=== PATIENT | female | born 1940 | race Caucasian/White ===

== ENCOUNTER 2018-02-27 11:55 | Inpatient (IN) | payer MEDICARE, OTHER ==
--- NOTE | 2018-02-27 13:33 | RAD ---
LEFT HIP 2 VIEWS: Date: 02/27/18 HISTORY: Fall. FINDINGS: There is an intertrochanteric fracture of the left hip with coxa vara deformity. The bones are demine ralized. IMPRESSION: Intertrochanteric fracture of the left hip. POS: [facility]
[2018-02-27 13:39] LABS: #Basophils 0.1 thou/uL (0.0-0.2); #Eosinphils 0.1 thou/uL (0.0-0.7); #Lymphocytes 1.2 thou/uL (1.20-3.40); #Monocytes 0.5 thou/uL (0.11-0.59); #Neutrophils 6.6 thou/uL (1.40-6.50); %Basophils 0.7 % (0.0-1.0); %Eosinophils 0.6 % (0.0-10.0); %Lymphocytes 14.5 % (21.0-51.0); %Monocytes 5.7 % (0.0-10.0); %Neutrophils 78.5 % (42.0-75.0); Hemoglobin 12.5 g/dL (12.0-16.0); Mean Corpuscular Hemoglobin 29.1 pg (27.0-31.0); Mean Corpuscular Volume 85.5 fL (78.0-98.0); Mean Platelet Volume 7.1 fL (7.4-10.4); Platelet Count 245 thou/uL (130-400); RBC Distribution Width 13.5 % (11.5-14.5); White Blood Cell (WBC) Count 8.4 thou/uL (4.8-10.8)
[2018-02-27 13:49] LABS: INR-International Normal Ratio 0.9; PTT 28.9 SEC (22.9-36.1); Prothrombin Time 12.5 SEC (12.0-14.7)
[2018-02-27 13:59] LABS: ALT (SGPT) 23 U/L (8-55); AST (SGOT) 33 U/L (5-34); Alkaline Phosphatase 85 U/L (40-150); Anion Gap 12 mmol/L (10-20); BUN (Urea Nitrogen) 17 mg/dL (9.8-20.1); Bilirubin, Total 0.5 mg/dL (0.2-1.2); CK (CPK) 90 U/L (29-168); Calc. Creatinine Clearance 0 mL/min (70-130); Calcium 9.3 mg/dL (7.8-10.44); Carbon Dioxide 27 mmol/L (23-31); Chloride 95 mmol/L (98-107); Estimated GFR-MDRD 43; Globulin 3.2 g/dL (2.4-3.5); Glucose 129 mg/dL (83-110); Potassium 3.9 mmol/L (3.5-5.1); Protein, Total 7.2 g/dL (6.0-8.3); Sodium 130 mmol/L (136-145)
[2018-02-27 14:02] LABS: CKMB 2.4 ng/mL (0-6.6); Troponin I Less than 0.010 ng/mL (< 0.028)
[2018-02-27] MEDS ORDERED: Dextrose 50% Abboject 50 ML SYRINGE SLOW IVP PRN (14:19)
[2018-02-27] MEDS ORDERED: Ondansetron HCl/PF 4 MG/2 ML Vial IVP PRN (14:19)
[2018-02-27] MEDS ORDERED: Dextrose 5% in Water 1,000 ML IV PRN (14:19)
[2018-02-27] MEDS ORDERED: Ondansetron ODT 4 MG TAB PO PRN (14:19)
[2018-02-27] MEDS ORDERED: hydrALAZINE 20 MG/ML VIAL SLOW IVP PRN (14:19)
[2018-02-27] MEDS ORDERED: Lorazepam 0.5 MG TAB PO PRN (14:22)
[2018-02-27] MEDS ORDERED: Melatonin 3 MG TAB PO PRN (14:22)
[2018-02-27] MEDS ORDERED: traMADol HCl 50 MG TAB PO PRN (14:24)
[2018-02-27] MEDS ORDERED: traMADol HCl 50 MG TAB PO SCH (14:30)
--- NOTE | 2018-02-27 14:46 | RAD ---
AP VIEW CHEST: Date: 02/27/18 INDICATION: Preop evaluation. COMPARISON: Prior exam dated 05/13/14. IMPRESSION: Chronic lung changes are stable. Mild cardiomegaly is similar appearing. No consolidation, pleural ef fusion, or pneumothorax is evident. No acute osseous abnormality is noted. POS: [facility]
[2018-02-27] MEDS ORDERED: Ondansetron HCl/PF 4 MG/2 ML Vial ONE (15:04)
[2018-02-27] MEDS ORDERED: CEFAZOLIN/Water 2 GM/20 ML SYRINGE SLOW IVP SCH (15:45)
[2018-02-27] MEDS ORDERED: Fentanyl 100 MCG/2 ML VIAL ONE ×2 (16:03→16:40)
[2018-02-27] MEDS ORDERED: Midazolam HCl 2 mg/2 ml Vial ONE (16:40)
[2018-02-27] MEDS ORDERED: CEFAZOLIN/Water 2 GM/20 ML SYRINGE ONE (16:52)
[2018-02-27] MEDS ORDERED: Bupivacaine 0.75% W/DEXTROSE 8.25% 2 ML AMP ONE (16:59)
[2018-02-27] MEDS ORDERED: Lidocaine 2% PF Inj 2 ML VIAL ONE (16:59)
[2018-02-27 17:06] LABS: CKMB 2.3 ng/mL (0-6.6); Troponin I Less than 0.010 ng/mL (< 0.028)
--- NOTE | 2018-02-27 17:11 | CON ---
DATE OF CONSULTATION: 02/27/2018 CHIEF COMPLAINT: Left hip pain. HISTORY OF PRESENT ILLNESS: Ms. Christine is a 77-year-old female who was at the grocery store today. Sh e turned when she lost her balance. Her cart fell over and she fell as well. She landed on her left side on the hard ground. She had immediate pain. She had deformity. She was unable to weightbear. She was taken to the emergency department by EMS. X-rays were obtained which showed a proximal fem ur fracture at the intertrochanteric region. Orthopedics was consulted for this. She has received p ain control. She is currently resting comfortably. No other injuries. She did not lose consciousne ss. She remembers the events well. PAST MEDICAL HISTORY: Chronic obstructive pulmonary disease and history of gastroesophageal reflux w ith history of ulcer as well. PAST SURGICAL HISTORY: Ruptured gastric ulcer surgery. ALLERGIES: BARBITURATES and MORPHINE. SOCIAL HISTORY: The patient smokes cigarettes. She denies alcohol or drug use. She lives independe ntly alone. REVIEW OF SYSTEMS: Positive for left hip pain, otherwise negative 10-point review of systems. IMAGES: X-rays of the pelvis and left hip demonstrate a displaced left intertrochanteric femur fract ure with varus angulation. PHYSICAL EXAMINATION: VITAL SIGNS: Stable. The patient is normotensive. She is 98% on room air. GENERAL: She is alert, lying supine, in no apparent distress. HEENT: Normocephalic, atraumatic. RESPIRATORY: Breathing comfortably. ABDOMEN: Soft and nontender, nondistended. CARDIOVASCULAR: Pulses palpable and regular. MUSCULOSKELETAL: The patient's left leg is externally rotated and shortened. She is hesitant to mov e the leg. She has pain with movement. She has intact sensation on the dorsal and plantar foot. Pa lpable pulse. Two second capillary refill. IMPRESSION: Left intertrochanteric femur fracture. PLAN: At this point, the patient will need operative treatment. I have her scheduled for closed red uction with traction and fixation using a dynamic hip screw. She will undergo this today. We will o btain consent. I will review the plan with her as well as with her family. Risks do include infecti on, pain, scarring, nerve or vascular injury, DVT, PE, hardware failure, and others. She will have p reoperative antibiotics as well as DVT prophylaxis.
--- NOTE | 2018-02-27 17:37 | HP ---
DATE OF ADMISSION: 02/27/2018 ATTENDING PHYSICIAN: Dr. Bruno. TRAUMA ACTIVATION: Not applicable. HISTORY OF PRESENT ILLNESS: Alessia Christine is a 77-year-old female who presented to [facility] statu s post mechanical fall. Per patient, she was in the grocery store when she tripped and fell, strikin g her left side. She had immediate onset of left lower extremity pain and deformity and was unable t o ambulate. She was evaluated in the emergency room and found to have an isolated left hip fracture. The patient denies any head trauma or loss of consciousness. Upon my evaluation, she is having lef t-sided hip discomfort rated as a 9/10 with movement, but 1/10 when at rest. The pain is relieved wi th pain medications. ALLERGIES: Barbiturates. HOME MEDICATIONS: Singulair inhaler, Ventolin inhaler, sodium chloride 1 gram b.i.d., atenolol 50 mg p.o. daily, and Ativan 0.5 mg q.8 hours p.r.n. anxiety. PAST MEDICAL HISTORY: Significant for hypertension and abdominal hernia. PAST SURGICAL HISTORY: Significant for a perforated ulcer repair and tonsillectomy. SOCIAL HISTORY: Patient lives alone, ambulates independently. Denies any alcohol use, but is a 1 pa ck per day smoker x60 years. Denies illicit drug use. FAMILY HISTORY: Patient denies any family history of chronic medical illnesses. REVIEW OF SYSTEMS: A 10-poin6t review of systems was obtained and essentially negative except as ind icated in the HPI. PHYSICAL EXAMINATION: VITAL SIGNS: Blood pressure 207/94, pulse 53, respiration rate 18, O2 saturation 98% on room air. GENERAL: Frail appearing elderly female in no acute distress, resting in bed. HEAD: Normocephalic, atraumatic. EYES: Pupils are PERRLA. Extraocular movements are intact. NECK: Supple. Trachea is midline. CHEST: Atraumatic. No tenderness to palpation. Normal work of breathing. Symmetric rise. CARDIOVASCULAR: Regular rate and rhythm, no obvious murmurs, rubs, or gallops. GASTROINTESTINAL: Abdomen is soft, nontender, nondistended. Bowel sounds are positive. EXTREMITIES: Bilateral upper extremities with scattered areas of ecchymosis. Right lower extremity within normal limits. Left lower extremity demonstrated shortening and external rotation. Pulses ar e 2+ bilaterally. NEUROLOGIC: GCS is 15. No focal deficit is noted. LABORATORY FINDINGS: WBC 8.4, hemoglobin 12.5, hematocrit 36.7, platelet count 245. INR 0.9. Sodiu m 130, potassium 3.9, chloride 95, carbon dioxide 27, BUN 17, creatinine 1.22, glucose 129. RADIOGRAPHIC FINDINGS: X-ray of the hip demonstrated a left intertrochanteric hip fracture. Chest x -ray demonstrated no acute cardiopulmonary findings with flattened diaphragms. ASSESSMENT: 1. Status post mechanical fall. 2. Left hip fracture. 3. Acute traumatic pain. 4. Hyponatremia, likely chronic. 5. Acute kidney injury versus chronic kidney disease. 6. Hypertension. PLAN: 1. Admit to Trauma Services. 2. Orthopedic Surgery plans to see and evaluate the patient, but hopes for operative intervention la ter today. IV hydralazine now for hypertension. Follow up postoperatively. Perioperative pain ann gement with p.o. and IV analgesics. We will reconcile home medications. Postoperative PT and OT. P ostoperative rehabilitation screen. 3. DVT and gastritis prophylaxis as appropriate. Plan for admission were discussed with the patient , who vocalized her understanding. All questions were answered at the time of this dictation. The p atient has been seen and evaluated by Dr. Bruno.
--- NOTE | 2018-02-27 18:23 | OP ---
DATE OF PROCEDURE: 02/27/2018 OPERATION: Open reduction and internal fixation of left intertrochanteric femur fracture. PREOPERATIVE DIAGNOSIS: Left intertrochanteric femur fracture. POSTOPERATIVE DIAGNOSIS: Left intertrochanteric femur fracture. COMPLICATIONS: None. ESTIMATED BLOOD LOSS: 200 mL SURGEON: Eladio Shahid M.D. ANESTHESIA: Spinal. IMPLANTS: Synthes DHS 3-hole plate. INDICATIONS: Ms. Christine is a 77-year-old female who fell. She fractured her left intertrochanteric fe mur. She was indicated for reduction and fixation. Goal of surgery is early mobilization and preven tion of complications of prolonged bed rest. Risks do include respiratory complication, cardiac comp lication, nerve or vascular injury, DVT, PE, wound infection or other complication. DESCRIPTION OF PROCEDURE: Ms. Christine was identified in the preoperative holding area. Her correct ext remity was marked. She was carried to the operating room. She was positioned supine. General anest hesia was induced. A multidisciplinary timeout was performed. The left lower extremity was prepped and draped in the sterile fashion. At this point, we used intraoperative x-ray to reduce the fractur e on the traction table. We pulled traction and rotated the femur back into an anatomic position. A t this point, we made a 4 cm incision along the lateral thigh. We dissected down to the fascia, whic h was split. We then elevated the vastus lateralis. At this point, we placed our 135-degree angled guide. We placed this in the centered position of the femoral head. The guide was removed. We then overdrilled the guidewire and placed our centered screw. A 3-hole side plate was placed and transfi xed with 3 screws in the femur. We took final images confirming all hardware and reduction. We stor ed these. We then thoroughly irrigated with copious lavage. At this point, closure was completed wi th 0 Vicryl suture, 2-0 Vicryl suture and keena for the skin. A sterile dressing was applied. The patient was taken to the recovery room in good condition without complication.
--- NOTE | 2018-02-27 18:32 | RAD ---
TWO FLUOROSCOPIC SPOT IMAGES OF THE LEFT HIP: 02/27/18 INDICATION: ORIF of the left hip. COMPARISON: Prior exam dated 02/27/18. FINDINGS: Significant from the comparison is there has been interval placement of a sliding hip screw and sidep late involving the left intertrochanteric hip fracture. Fracture alignment is near anatomic. Instrume ntation projects in the expected position. Total fluoroscopic time is 25 seconds. Total exposure is 2 .09 mGy. IMPRESSION: Interval ORIF of left hip. POS: [facility]
[2018-02-27 20:04] LABS: CKMB 2.8 ng/mL (0-6.6); Troponin I Less than 0.010 ng/mL (< 0.028)
[2018-02-27 20:57] VITALS: BMI 17.6
[2018-02-27] MEDS: Acetaminophen 1,000 MG in Premix Bag 1 BAG IVPB SCH (22:38)
[2018-02-27] MEDS: Montelukast Sodium 10 mg Tablet PO SCH (22:39)
[2018-02-27] MEDS: Senokot S 8.6-50 MG TAB PO SCH (22:39)
[2018-02-27] MEDS: traMADol HCl 50 MG TAB PO SCH (22:39)
[2018-02-27] MEDS: Sodium Chloride 0.9% 1,000 ML IV SCH (22:39)
[2018-02-27] MEDS: Sodium Chloride 1 GM TAB PO SCH (22:40)
[2018-02-28] MEDS: traMADol HCl 50 MG TAB PO SCH ×4 (01:33→18:13)
[2018-02-28] MEDS: Acetaminophen 1,000 MG in Premix Bag 1 BAG IVPB SCH ×2 (01:33→05:12)
[2018-02-28] MEDS: CEFAZOLIN/Water 2 GM/20 ML SYRINGE SLOW IVP SCH ×2 (01:34→09:05)
[2018-02-28] MEDS: Sodium Chloride 0.9% 1,000 ML IV SCH (03:56)
[2018-02-28 04:03] LABS: Bilirubin Negative (Negative); Blood, Urine Negative (Negative); Clarity CLEAR (Clear); Glucose, Urine (Dipstick) Negative (Negative); Leukocyte Small (Negative); Nitrite Negative (Negative); Protein, Urine (Dipstick) Negative (Neg-Trace); Specific Gravity, Urine 1.027 (1.002-1.036); Urobilinogen 0.2 mg/dL (0.2-1.0); pH, Urine 5.5 (5.0-9.0)
[2018-02-28 04:05] LABS: Bacteria/HPF None Seen HPF (None Seen); Hyaline Casts/LPF 0-3 HYALINE CAST LPF (0-3 Hyaline); Squamous Epithelial 0-3 HPF (0-3); WBC/HPF 21-50 HPF (0-3)
[2018-02-28 04:31] LABS: Renal Epithelial 0-3 HPF (0-3); Transitional Epithelial NONE SEEN HPF (0-3)
[2018-02-28 05:40] LABS: #Lymphocytes 0.9 thou/uL (1.20-3.40); #Monocytes 0.6 thou/uL (0.11-0.59); #Neutrophils 5.1 thou/uL (1.40-6.50); %Basophils 0.5 % (0.0-1.0); %Eosinophils 0.3 % (0.0-10.0); %Lymphocytes 13.9 % (21.0-51.0); %Monocytes 9.4 % (0.0-10.0); %Neutrophils 75.9 % (42.0-75.0); Hemoglobin 9.1 g/dL (12.0-16.0); Mean Corpuscular HGB CONC 33.9 g/dL (32.0-36.0); Mean Corpuscular Volume 85.4 fL (78.0-98.0); Mean Platelet Volume 7.5 fL (7.4-10.4); Platelet Count 194 thou/uL (130-400); RBC Distribution Width 13.3 % (11.5-14.5); Red Blood Cell (RBC) Count 3.15 mill/uL (4.20-5.40); White Blood Cell (WBC) Count 6.8 thou/uL (4.8-10.8)
[2018-02-28 05:47] LABS: Anion Gap 9 mmol/L (10-20); BUN (Urea Nitrogen) 17 mg/dL (9.8-20.1); Calc. Creatinine Clearance 26 mL/min (70-130); Calcium 8.5 mg/dL (7.8-10.44); Carbon Dioxide 26 mmol/L (23-31); Chloride 99 mmol/L (98-107); Estimated GFR-MDRD 45; Glucose 97 mg/dL (83-110); Potassium 4.4 mmol/L (3.5-5.1); Sodium 130 mmol/L (136-145)
[2018-02-28] MEDS: Famotidine/PF 20 mg/2ml Vial SLOW IVP SCH (09:08)
[2018-02-28] MEDS: Enoxaparin Sodium 40 MG/0.4 ML SYRINGE SC SCH (09:08)
[2018-02-28] MEDS: Polyethylene Glycol 3350 17 GM Packet PO SCH (09:08)
[2018-02-28] MEDS: Senokot S 8.6-50 MG TAB PO SCH ×2 (09:08→20:37)
[2018-02-28] MEDS: Sulfameth/Trimethoprim DS 800-160mg TAB PO SCH ×2 (09:08→20:36)
[2018-02-28] MEDS: Atenolol 50 MG TAB PO SCH (09:16)
[2018-02-28] MEDS: Sodium Chloride 1 GM TAB PO SCH ×2 (09:22→21:17)
[2018-02-28] MEDS ORDERED: Nicotine 21 MG PATCH TD SCH (11:00)
--- NOTE | 2018-02-28 11:34 | PRG ---
DATE OF SERVICE: 02/28/2018 SUBJECTIVE: This is a 77-year-old female who is status post mechanical fall resulting in left hip fr acture. She is postop day 1 status post open reduction internal fixation of left intertrochanteric h ip fracture. Upon my evaluation this morning, the patient has a chief complaint of left lower extrem ity cramping and irritation from her Kincaid catheter. She is also having significant craving for van vipin. She has not yet been able to work with physical therapy. The family at bedside is requesting eventual disposition to correction or rehab facility close to their [facility]. OBJECTIVE: VITAL SIGNS: Temperature 97.2, pulse 56, respiration 20, O2 sat 100% on room air, blood pressure 183 /83. GENERAL: Well-developed elderly female, in no acute distress, resting in bed. PULMONARY: Normal work of breathing. Symmetric rise. CARDIOVASCULAR: Regular rate and rhythm. GASTROINTESTINAL: Abdomen is soft, nontender, nondistended. MUSCULOSKELETAL: Moves all extremities x4. Left hip surgical dressing is clean, dry and intact. NEUROLOGIC: No focal deficit is noted. LABORATORY FINDINGS: Sodium 130, potassium 4.4, chloride 99, carbon dioxide 26, BUN 17, creatinine 1 .17, phosphorus 4.0, magnesium 2.0, glucose 97. ASSESSMENT: 1. Status post mechanical fall. 2. Left hip fracture, postop day 1 status post repair. 3. Acute traumatic pain. 4. Hyponatremia, chronic, stable. 5. Chronic kidney disease, stable. 6. Hypertension. PLAN: The patient to resume home beta deniz. She is to work with PT and OT today. We will add Fl exeril 5 mg t.i.d. p.r.n. for muscle spasm. Nicotine patch. The patient additionally had a chief co mplaint of a dry mouth. We will add Biotin. Discontinue Kincaid. The patient may be saline locked. Transition to p.o. pain medications. Rehab screen. Supportive care as ordered. Incentive spirometr y and pulmonary toileting. Plan of care were discussed with the patient and family at bedside. All questions were answered at the time of this dictation. [facility]
[2018-02-28] MEDS ORDERED: BIOTENE MOUTH SPRAY 44.3 ML PO SCH (11:45)
[2018-02-28] MEDS: Acetaminophen 500 MG TAB PO SCH ×2 (12:01→18:13)
[2018-02-28] MEDS: Cyclobenzaprine 10 MG TAB PO PRN (12:14)
--- NOTE | 2018-02-28 13:59 | ADD-HP ---
ADDENDUM This is an addendum to the H&P dictated by Millicent Koroma trauma PA. For full details, please see he r dictated report, the details of which I have confirmed. HISTORY: In short, Mr. Christine is a 77-year-old woman who fell at the grocery store, landing on her lef t hip and had immediate pain and deformity of that leg. She was found to have an isolated left hip f racture and that is her only complaint in the emergency room. ALLERGIES: She reports an adverse drug reaction to barbiturates and takes Singulair inhaler, Ventoli n inhaler, atenolol, and Ativan as well as a salt tablet daily at home. PAST MEDICAL HISTORY: Chronic obstructive pulmonary disease, hypertension. PAST SURGICAL HISTORY: Repair of a perforated peptic ulcer with resulting chronic hernia. She has a lso had a tonsillectomy in the distant past. SOCIAL HISTORY: She does still smoke, does not use any drugs or alcohol and lives independently. FAMILY HISTORY: Noncontributory. REVIEW OF SYSTEMS: Ten-system review of systems is negative except per HPI. PHYSICAL EXAMINATION: Unremarkable except for externally rotated and foreshortened left leg with cristy n in the left hip area. She has normal peripheral pulses movements and sensation. She also has a la rge broad-based ventral hernia with likely loss of domain and multiple bowel loops outside of the abd ominal wall under a layer of skin and soft tissue. These are easily reducible and the patient states that it has been present for years and does not bother her. LABORATORY DATA: Labs are unremarkable and creatinine is mildly elevated at 1.22. X-ray shows inter trochanteric hip fracture. Chest x-ray shows some COPD findings with flattening of the diaphragms. She is going to the operating room today with Dr. Shahid for repair of her hip fracture. We will manage her perioperatively with pain management and early mobilization and continue her home medicati ons. She will be placed on deep venous thrombosis and ulcer prophylaxis.
[2018-02-28] MEDS: traMADol HCl 50 MG TAB PO PRN (16:08)
[2018-02-28] MEDS: Montelukast Sodium 10 mg Tablet PO SCH (20:36)
[2018-02-28] MEDS: BIOTENE MOUTH SPRAY 44.3 ML PO SCH (20:37)
[2018-03-01] MEDS: traMADol HCl 50 MG TAB PO SCH ×4 (00:27→17:30)
[2018-03-01] MEDS: Acetaminophen 500 MG TAB PO SCH ×4 (00:28→17:30)
[2018-03-01 06:03] LABS: Anion Gap 10 mmol/L (10-20); BUN (Urea Nitrogen) 16 mg/dL (9.8-20.1); Calc. Creatinine Clearance 23 mL/min (70-130); Calcium 8.9 mg/dL (7.8-10.44); Carbon Dioxide 26 mmol/L (23-31); Chloride 99 mmol/L (98-107); Estimated GFR-MDRD 40; Glucose 105 mg/dL (83-110); Phosphorus 3.4 mg/dL (2.3-4.7); Potassium 5.2 mmol/L (3.5-5.1); Sodium 130 mmol/L (136-145)
[2018-03-01] MEDS: BIOTENE MOUTH SPRAY 44.3 ML PO SCH ×2 (09:41→20:42)
[2018-03-01] MEDS: Famotidine/PF 20 mg/2ml Vial SLOW IVP SCH (09:42)
[2018-03-01] MEDS: Sodium Chloride 1 GM TAB PO SCH ×2 (09:42→20:38)
[2018-03-01] MEDS: Senokot S 8.6-50 MG TAB PO SCH ×2 (09:42→20:39)
[2018-03-01] MEDS: Sulfameth/Trimethoprim DS 800-160mg TAB PO SCH ×2 (09:42→20:38)
[2018-03-01] MEDS: Polyethylene Glycol 3350 17 GM Packet PO SCH (09:42)
[2018-03-01] MEDS: Enoxaparin Sodium 40 MG/0.4 ML SYRINGE SC SCH (09:43)
[2018-03-01] MEDS: Nicotine 21 MG PATCH TD SCH (09:43)
[2018-03-01] MEDS: Atenolol 50 MG TAB PO SCH (09:45)
--- NOTE | 2018-03-01 11:58 | CT ---
CT OF BRAIN PERFORMED WITHOUT CONTRAST ENHANCEMENT: HISTORY: Head injury. FINDINGS: There is generalized ventricular and sulcal prominence with decreased attenuation of the periventricu lar white matter consistent with some chronic white matter change. No signs of intracerebral hemorrh age or extraaxial fluid collection. Mastoid air cells and visualized sinuses are clear. IMPRESSION: No acute intracranial abnormalities. POS: [facility]
--- NOTE | 2018-03-01 15:16 | PRG-2 ---
DATE OF SERVICE: 02/28/2018 SUBJECTIVE: This is a 77-year-old female who is status post mechanical fall resulting in a left hip fracture. She is postop day #02, status post open reduction internal fixation of left intertrochante susan hip fracture. The patient states that her left leg is still cramping. Today, she was able to wo rk with physical therapy. Family still wants the patient at nursing or rehab facility close at home. Options may include swing bed. OBJECTIVE: VITAL SIGNS: Temperature 98.2, pulse 65, respirations 16, pulse ox 97% on 2 liters, blood pressure 1 26/76. GENERAL: Patient is resting in bed, in no acute distress. PULMONARY: Lungs are clear to auscultation bilaterally, nonlabored breathing. CARDIOVASCULAR: Regular rate and rhythm with no murmurs. GASTROINTESTINAL: Abdomen is soft, nontender with bowel sounds present. MUSCULOSKELETAL: The patient can move all 4 extremities. Surgical dressing is clean, dry, and intac t. Pulses are present in all 4 extremities. NEUROLOGIC: No focal deficit is noted. LABORATORY DATA: Sodium 130, potassium 5.2, chloride 99, bicarbonate 26, BUN 16, creatinine 1.29, gl ucose 105. ASSESSMENT: 1. Status post mechanical fall. 2. Left hip fracture, postop day #2 status post repair. 3. Acute traumatic pain. 4. Hyponatremia, chronic, stable. 5. Chronic kidney disease, stable. 6. Hypertension. PLAN: The patient has worked well with PT, OT today. The patient is on melatonin for sleep as well as nicotine patch. Patient's Kincaid was discontinued today. The patient is undergoing rehabilitation screen. We are continuing supportive care as well as incentive spirometry. Dr. Osuna saw this oswald ent and we discussed their treatment and plan.
[2018-03-01] MEDS: Cyclobenzaprine 10 MG TAB PO PRN (17:32)
[2018-03-01] MEDS: Montelukast Sodium 10 mg Tablet PO SCH (20:39)
[2018-03-01] MEDS: Midodrine HCl 5 MG TAB PO SCH (20:41)
[2018-03-01] MEDS ORDERED: Melatonin 3 MG TAB PO SCH (21:00)
[2018-03-02] MEDS: traMADol HCl 50 MG TAB PO SCH ×4 (00:04→17:30)
[2018-03-02] MEDS: Acetaminophen 500 MG TAB PO SCH ×4 (00:04→17:30)
[2018-03-02] MEDS ORDERED: BIOTENE MOUTH SPRAY 44.3 ML PO PRN (07:46)
[2018-03-02] MEDS: Atenolol 50 MG TAB PO SCH (08:30)
[2018-03-02] MEDS: Polyethylene Glycol 3350 17 GM Packet PO SCH (08:31)
[2018-03-02] MEDS: Sodium Chloride 1 GM TAB PO SCH (08:31)
[2018-03-02] MEDS: Senokot S 8.6-50 MG TAB PO SCH (08:31)
[2018-03-02] MEDS: Enoxaparin Sodium 40 MG/0.4 ML SYRINGE SC SCH (08:31)
[2018-03-02] MEDS: Sulfameth/Trimethoprim DS 800-160mg TAB PO SCH (08:31)
[2018-03-02] MEDS: Nicotine 21 MG PATCH TD SCH (08:32)
[2018-03-02] MEDS ORDERED: Famotidine 20 MG TAB PO SCH (09:00)
[2018-03-02] MEDS: traMADol HCl 50 MG TAB PO PRN (09:09)
[2018-03-02] MEDS: Midodrine HCl 5 MG TAB PO SCH (09:41)
[2018-03-02] MEDS ORDERED: Cyclobenzaprine 10 MG TAB PO SCH (15:00)
--- NOTE | 2018-03-02 15:31 | PRG-2 ---
DATE OF SERVICE: 03/02/2018 PHYSICIANS: Dr. Camilo Osuna and Abilio Key DO SUBJECTIVE: This is a 77-year-old female hospital day #3, postop day #3, status post left hip ORIF. Today, she has had some confusion per nursing and per family. The patient also complains of muscle spasms in her left leg. The patient denies any dizziness, chest pain, or shortness of breath. The p atient states that she is working with physical therapy and physical therapy states that she has been making progress. OBJECTIVE: VITAL SIGNS: Temperature 97.3, pulse 77, respirations 16, O2 sat 98% on room air, blood pressure 151 /76. GENERAL: The patient is found lying in bed, in no acute distress. HEENT: Normocephalic, atraumatic. CARDIOVASCULAR: Regular rate and rhythm. No murmurs. RESPIRATORY: Lungs clear to auscultation bilaterally. EXTREMITIES: Pulses present in all 4 extremities. The patient can move all 4 extremities, has koffi l sensation. LABORATORY DATA: No pertinent labs or imaging to review today. ASSESSMENT: 1. Status post mechanical fall. 2. Left hip fracture, postop day #3 status post repair. 3. Acute traumatic pain. 4. Hyponatremia, chronic, stable. 5. Chronic kidney disease, stable. 6. Hypertension. PLAN: The patient is working well with PT and OT today. We are scheduling patient's previously p.r. n. Flexeril for muscle spasms. Patient has undergone rehabilitation screen and will be discharged fo r rehabilitation and rehabilitation is ready for her. We will continue supportive care as well as in centive spirometry. Dr. Osuna saw this patient. We discussed the treatment plan.
[2018-03-02 15:41] VITALS: BP 162/74; TEMP 97.5
[2018-03-02] MEDS ORDERED: Sulfameth/Trimethoprim DS 800-160mg TAB PO SCH (16:30)
--- NOTE | 2018-03-03 06:02 | DIS-2 ---
DATE OF ADMISSION: 02/27/2018 DATE OF DISCHARGE: 03/02/2018 ADMITTING ATTENDING TEAM: Trauma, Dr. Osuna; Abilio Key DO DISCHARGE ATTENDING TEAM: Trauma, Dr. Osuna; Abilio Key DO CONSULTATIONS: Dr. Shahid with ortho. PROCEDURES: 1. Two-view left hip showing intertrochanteric fracture of the left hip. 2. One-view chest portable chronic lung changes that are stable, mild cardiomegaly, no consolidation s, pleural effusions, or pneumothorax evident. 3. CT brain without contrast, no acute intracranial abnormalities open reduction and internal fixati on of left hip with 2-view fluoroscopic intraprocedural view showing interval ORIF left hip, alignmen t is near anatomic. ADMITTING DIAGNOSES: Left hip fracture, status post , status post open reduction and internal f ixation. SECONDARY DIAGNOSES: 1. Hyponatremia, acute kidney injury on chronic kidney injury. 2. Hypertension. DISCHARGE MEDICATIONS: Tylenol 1000 mg q.6 hours, cyclobenzaprine 5 mg t.i.d., DuoNebs p.r.n. t.i.d. for wheezing, melatonin 3 mg, nicotine patch, Singulair, ProAmatine, MiraLax, Senokot, 1-gram sodium tab. DISCONTINUED MEDICATIONS: Bactrim double-strength. HISTORY OF PRESENT ILLNESS AND HOSPITAL COURSE: This is a 77-year-old female who presented to the ER status post mechanical fall. Patient was diagnosed with an intertrochanteric femoral neck fracture and was taken for surgery for open reduction and internal fixation. Patient tolerated this procedure well on the night of the 3rd-4th of the month. Patient experienced some sundowning but was easily r eorientable. Patient was placed in a facility and accepted. Patient progressed well towards the goa ls with physical therapy and occupational therapy and will continue towards goals at skilled rehab. DISPOSITION: Stable. DISCHARGE INSTRUCTIONS: 1. Location: jail. 2. Diet: Renal diet. 3. Activity: Weightbearing with assistance. 4. Followup: Dr. Shahid in 10-14 days with her PCP in 1-2 weeks.
[2018-03-03] MEDS ORDERED: Enoxaparin Sodium 30 MG/0.3 ML SYRINGE SC SCH (09:00)
== END 2018-03-02 17:48 | DRG 481 ==
LOC: ERS 11:55 → SDC 16:12 → SURG A 16:50
PROVIDERS: ADMIT Surgery; ATTEND Surgery
PROC: 0QS704Z Reposition Left Upper Femur with Internal Fixation Device, Open Approach (ICD-10-PCS; principal; 2018-02-27)
DX: S72.142A Displaced intertrochanteric fracture of left femur, initial encounter for closed fracture (principal); E87.1 Hypo-osmolality and hyponatremia; N17.9 Acute kidney failure, unspecified; F05 Delirium due to known physiological condition; K21.9 Gastro-esophageal reflux disease without esophagitis; F17.210 Nicotine dependence, cigarettes, uncomplicated; E78.5 Hyperlipidemia, unspecified; Z91.81 History of falling; M81.0 Age-related osteoporosis without current pathological fracture; J43.9 Emphysema, unspecified; M21.952 Unspecified acquired deformity of left thigh; K43.9 Ventral hernia without obstruction or gangrene; M62.838 Other muscle spasm; I12.9 Hypertensive chronic kidney disease with stage 1 through stage 4 chronic kidney disease, or unspecified chronic kidney disease; N18.9 Chronic kidney disease, unspecified
CPT/HCPCS: 36415; 70450; 71045; 76000; 80048; 80053; 81003; 81015; 82550; 82553; 83735; 84100; 84484; 85025; 85610; 85730; 86850; 86900; 86901; 87086; 93005; 94640; 94760; 96361; 96374; 96375; C1713; G8978-GP-CM; G8979-GP-CJ; G8987-GO-CL; G8988-GO-CI; J0131; J0360; J1650; J2250; J2405; J3010; J3490; J7620; Q0162; S0028

== ENCOUNTER 2018-09-11 04:44 | Inpatient (IN) | payer MEDICARE, OTHER ==
[2018-09-11] MEDS ORDERED: Nitroglycerin 2% Ointment 1 INCH/1 GM Packet ONE (05:10)
[2018-09-11] MEDS ORDERED: Fentanyl 100 MCG/2 ML VIAL ONE (05:18)
[2018-09-11 05:20] LABS: #Basophils 0.1 thou/uL (0.0-0.2); #Eosinphils 0.1 thou/uL (0.0-0.7); #Lymphocytes 1.1 thou/uL (1.20-3.40); #Monocytes 0.7 thou/uL (0.11-0.59); #Neutrophils 6.7 thou/uL (1.40-6.50); %Basophils 0.6 % (0.0-1.0); %Eosinophils 0.7 % (0.0-10.0); %Lymphocytes 12.3 % (21.0-51.0); %Monocytes 8.6 % (0.0-10.0); %Neutrophils 77.8 % (42.0-75.0); Hemoglobin 12.1 g/dL (12.0-16.0); Mean Corpuscular HGB CONC 33.4 g/dL (32.0-36.0); Mean Corpuscular Hemoglobin 29.8 pg (27.0-31.0); Mean Corpuscular Volume 89.4 fL (78.0-98.0); Mean Platelet Volume 7.2 fL (7.4-10.4); Platelet Count 209 thou/uL (130-400); RBC Distribution Width 13.1 % (11.5-14.5); Red Blood Cell (RBC) Count 4.05 mill/uL (4.20-5.40); White Blood Cell (WBC) Count 8.6 thou/uL (4.8-10.8)
[2018-09-11 06:08] LABS: ALT (SGPT) 16 U/L (8-55); AST (SGOT) 25 U/L (5-34); Albumin 3.8 g/dL (3.4-4.8); Alkaline Phosphatase 92 U/L (40-150); Anion Gap 11 mmol/L (10-20); BUN (Urea Nitrogen) 21 mg/dL (9.8-20.1); Bilirubin, Total 0.5 mg/dL (0.2-1.2); Calc. Creatinine Clearance 0 mL/min (70-130); Carbon Dioxide 33 mmol/L (23-31); Chloride 94 mmol/L (98-107); Estimated GFR-MDRD 41; Globulin 2.8 g/dL (2.4-3.5); Glucose 121 mg/dL (83-110); Potassium 3.3 mmol/L (3.5-5.1); Protein, Total 6.6 g/dL (6.0-8.3); Sodium 135 mmol/L (136-145)
[2018-09-11 06:08] LABS: Bacteria/HPF None Seen HPF (None Seen); Bilirubin Negative (Negative); Blood, Urine Trace (Negative); Clarity CLOUDY (Clear); Glucose, Urine (Dipstick) Negative (Negative); Hyaline Casts/LPF 0-3 HYALINE CAST LPF (0-3 Hyaline); Leukocyte Negative (Negative); Nitrite Negative (Negative); Pathc Cast-AUWi Flag 0.27 (0-2.49); Protein, Urine (Dipstick) Trace mg/dL (Neg-Trace); Specific Gravity, Urine 1.007 (1.002-1.036); Squamous Epithelial 0-3 HPF (0-3); WBC/HPF 0-3 HPF (0-3)
[2018-09-11 06:10] LABS: Yeast-AUWi Flag 59.4 (0-25.0)
[2018-09-11 06:18] LABS: RBC/HPF 0-3 HPF (0-3); Yeast-All Forms None Seen HPF (None Seen)
[2018-09-11] MEDS ORDERED: hydrALAZINE 20 MG/ML VIAL ONE (06:20)
[2018-09-11] MEDS ORDERED: Potassium Chloride 10 MEQ TAB PO SCH (06:30)
[2018-09-11] MEDS ORDERED: Lorazepam 2 MG/ML VIAL ONE (07:32)
[2018-09-11] MEDS ORDERED: Ondansetron PF 4 MG/2 ML Vial ONE (07:32)
--- NOTE | 2018-09-11 07:54 | CT ---
HEAD CT NONCONTRAST: Date: 09/11/18 COMPARISON: 03/01/18. INDICATION: Fall, head injury with pain. FINDINGS: Mild parenchymal atrophy is present. There is no acute intracranial hemorrhage, mass effect, or midli ne shift. Mild chronic ischemic disease is demonstrated. There is compensatory dilatation of the vent ricular system. No depressed calvarial fracture. There is a small lipoma of the frontal scalp at midl ine with an adjacent punctate radiopaque density. IMPRESSION: No acute intracranial hemorrhage or mass effect. POS: [facility]
--- NOTE | 2018-09-11 07:56 | CT ---
CERVICAL SPINE CT NONCONTRAST: Date: 09/11/18 INDICATION: Fall with neck injury and pain. FINDINGS: There is moderate multilevel degenerative change throughout the cervical spine. No acute fracture trinity ntified. There is trace spondylolisthesis at C2-3 and slight retrolisthesis of C4 on C5 which may be degenerative in etiology. Osseous structures are demineralized. IMPRESSION: No acute osseous abnormality of the cervical spine is identified. POS: [facility]
--- NOTE | 2018-09-11 08:08 | RAD ---
2 VIEW LEFT HIP: Date: 09/11/18 INDICATION: Fall with injury. COMPARISON: 07/29/18. FINDINGS: Redemonstration of surgical hardware at the proximal left femur at the site of prior fixation. There is ill-defined lucency of the base of the left femoral neck. No dislocation of the hardware is seen. IMPRESSION: Postoperative left hip. Ill-defined lucency is present at the femoral neck. There is also slight over lying osseous irregularity of the greater trochanter. Correlate clinically. POS: [facility]
--- NOTE | 2018-09-11 08:19 | CT ---
LIMITED CT ABDOMEN, NONCONTRAST CT OF PELVIS, NONCONTRAST: Date: 09/11/18 INDICATION: Fall with pain. FINDINGS: The visualized low abdomen reveals a prominent sized ventral abdominal wall hernia with numerous loop s of unopacified bowel through the hernia site. This is incompletely visualized on the basis of this exam. There is ectasia and calcification of the imaged abdominal aorta and prominent vascular disease traverses the iliac arteries. A large volume of retained fecal material is present within the left h emicolon. There is a comminuted fracture centered at the base of the left femoral neck with involvement of the greater trochanter, which does traverse the site of indwelling previously placed hardware. The femora l head remains seated within the acetabulum. Right hip joint is maintained. There is generalized osse ous demineralization. Prominent distention of the urinary bladder is seen. There is heterotopic densi ty adjacent to the anterior aspect of the left acetabulum. IMPRESSION: 1. Comminuted proximal left femoral fracture centered about the base of the femoral neck with promin ent involvement of the greater trochanter. This does encompass the indwelling, previously placed left hip hardware. Recommend orthopedic consultation for further care. 2. Partially imaged prominent ventral abdominal wall hernia containing multiple loops of partially v isualized bowel traversing the hernia site. Correlate clinically in this regard. Surgical consultatio n as a follow-up would also prove useful. POS: [facility]
[2018-09-11 08:41] LABS: Troponin I 0.013 ng/mL (< 0.028)
[2018-09-11] MEDS ORDERED: Aspirin 325 MG TAB ONE (08:48)
--- NOTE | 2018-09-11 09:05 | RAD ---
LEFT FOREARM TWO VIEWS: History: Left forearm pain. Comparison: 07-29-18 elbow FINDINGS: There is again noted to be a displaced fracture through the radial head and neck region with what thais ears to be considerable associated bone destruction and possible associated bone lesion. Overall appe arance is not significantly changed from prior study. No new fracture. IMPRESSION: Remote appearing fracture through the humeral head and neck with what appears to be some associated b larry erosive and destructive changes and possible associated bone lesion best representing a pathologi c fracture with little change from the prior study. No new fracture. Findings discussed with Dr. Mcgregor at 08:01 a.m. Code CR POS: [facility]
--- NOTE | 2018-09-11 09:07 | RAD ---
LEFT ELBOW 4 VIEWS: Date: 09/11/18 HISTORY: Pain FINDINGS: Remote appearing fracture involving the left radial head and neck with some associated bone loss, con cerning for pathologic fracture. Appearance does not appear significantly changed from the 07/29/18 s tudy. No new fracture. IMPRESSION: Remote fracture through the proximal radial head and neck with a considerable amount of bone loss, wo rrisome for the possibility of associated pathologic fracture. POS: [facility]
[2018-09-11 09:33] LABS: Bilirubin Negative (Negative); Blood, Urine Negative (Negative); Clarity CLEAR (Clear); Glucose, Urine (Dipstick) Negative (Negative); Leukocyte Negative (Negative); Nitrite Negative (Negative); Protein, Urine (Dipstick) Negative (Neg-Trace); Specific Gravity, Urine 1.007 (1.002-1.036)
--- NOTE | 2018-09-11 09:38 | RAD ---
PORTABLE CHEST: Date: 09/11/18 HISTORY: Fall with injury to hip. FINDINGS: Lungs appear clear. No infiltrate or vascular congestion. Heart size normal. Aortic calcification is noted. Deformity of the right clavicle appears stable from exam of 02/27/18. IMPRESSION: No acute abnormality apparent. POS: [facility]
[2018-09-11] MEDS ORDERED: Fentanyl 100 MCG/2 ML VIAL SLOW IVP PRN (09:45)
[2018-09-11 09:52] VITALS: BMI 14.1
[2018-09-11] MEDS ORDERED: Ondansetron ODT 4 MG TAB PO PRN (09:52)
[2018-09-11] MEDS ORDERED: PROVENTIL INHALER 6.7 G (200 INHALATIONS) INH PRN (09:52)
[2018-09-11] MEDS ORDERED: Acetaminophen 500 MG TAB PO PRN (09:52)
--- NOTE | 2018-09-11 11:04 | MRI ---
MRI BRAIN WITHOUT CONTRAST: Date: 09/11/18 Multiplanar, multisequential imaging of brain obtained. INDICATION: TIA. FINDINGS: All sequences are degraded due to motion artifact. There is cortical atrophy. Mild to moderate chronic ischemic white matter change. Diffusion sequence shows a small focus of restricted diffusion in the right basal ganglia in the victorino on of the lateral right thalamus near the posterior limb of the internal capsule. No mass or edema. The intracranial internal carotid arteries, proximal cerebral arteries, and basilar arteries show yolanda w-voids. IMPRESSION: 1. Small acute lacunar infarct in the peripheral right thalamus region. 2. Cortical atrophy and mild to moderate chronic ischemic white matter change. POS: [facility]
[2018-09-11 11:52] LABS: Troponin I Less than 0.010 ng/mL (< 0.028)
[2018-09-11] MEDS: cloNIDine 0.1 MG TAB PO PRN ×2 (12:00→18:23)
--- NOTE | 2018-09-11 12:42 | HP ---
PRIMARY CARE PROVIDER: CHIEF COMPLAINT: Fall and left hip pain. HISTORY OF PRESENT ILLNESS: This is a 78-year-old female, who presents to [facility] in transfer by EMS personnel after apparently sustaining two separate falls prior to this evaluation. The patient was getting out of bed when she slipped and fell on her buttocks according to the daughters, who provided the majority of the history. The patient was able to get back on her feet and used a rolling walker, mobilizing into her living room. The patient apparently sustained a second fall in her living room, landing on her left side with left hip pain and unable to stand. The patient had called her daughter to relate her situation at which point, EMS personnel were notified. The patient states she also had difficulty moving her left arm and left leg and had difficulty with speaking. The patient apparently fell in February of 2018, sustaining a left hip fracture, undergoing open reduction and internal fixation, requiring inpatient rehabilitation as well as prolonged physical and occupational therapy. The daughters report that the patient had difficulty time regaining her strength and mobility, but was able to return home and live independently. The daughters are concerned with the patient's current living situation due to some confusion and memory issues, decreased mobility, recurrent falls, and ability to care for herself. The patient initially was complaining of pain at 3/10 in the left hip region as well as left arm pain. The patient was unable to bear weight and was noted with some shortening of the left lower extremity on exam. In the emergency room, the patient underwent plain radiographic evaluation of the left hip showing appropriate hardware positioning. CT of the hip and pelvic region did show a comminuted fracture of the left femoral neck centered around the previous hardware placement. The patient was evaluated by Orthopedic Surgery with recommendations for conservative management given the TIA/CVA type symptoms. CT of the brain was performed showing no acute process and the patient's left upper and lower extremity weakness had improved by the time of evaluation in the emergency room. The patient currently denies any shortness of breath or chest pain. The patient does continue to smoke up to a pack of cigarettes daily. PAST MEDICAL HISTORY: 1. Hypertension. 2. Chronic obstructive pulmonary disease. 3. Tobacco abuse ongoing. 4. Osteoporosis. 5. History of multiple falls. 6. Left hip fracture, status post mechanical fall. 7. Left radial head fracture, status post mechanical fall. 8. Gastric ulcer, status post perforation. 9. Ventral abdominal hernia. 10. History of atrial arrhythmias/fibrillation with previous anticoagulation with Eliquis. PAST SURGICAL HISTORY: 1. Status post repair of a perforated peptic ulcer. 2. Status post left hip open reduction and internal fixation. 3. Status post tonsillectomy. CURRENT MEDICATIONS: 1. Ventolin HFA 2 puffs inhaled q.6 hours p.r.n. 2. Atenolol 50 mg p.o. daily. 3. Lorazepam 0.5 mg p.o. at bedtime. 4. Mirtazapine 15 mg p.o. daily. 5. Singulair 15 mg p.o. daily. 6. Ferrous sulfate 325 mg p.o. b.i.d. 7. DuoNeb 3 mL nebulized t.i.d. p.r.n. 8. Midodrine 5 mg p.o. b.i.d. ALLERGIES: BARBITURATES. FAMILY HISTORY: Positive for hypertension. SOCIAL HISTORY: The patient accompanied by two daughters in the hospital. Smokes up to a pack of cigarettes daily. No alcohol or illicit drug use. Ambulates with the use of a rolling walker. History of multiple falls as stated previously. REVIEW OF SYSTEMS: CONSTITUTIONAL: Negative for weight loss or gain, ability to conduct usual activities. SKIN: Negative for rash, itching. EYES: Negative for double vision, pain. ENT/MOUTH: Negative for nose bleeding, neck stiffness, pain, tenderness. CARDIOVASCULAR: Negative for palpitations, dyspnea on exertion, orthopnea. RESPIRATORY: Negative for shortness of breath, wheezing, cough, hemoptysis, fever or night sweats. GASTROINTESTINAL: Negative for poor appetite, abdominal pain, heartburn, nausea, vomiting, constipation, or diarrhea. GENITOURINARY: Negative for urgency, frequency, dysuria, nocturia. MUSCULOSKELETAL: Negative for pain, swelling. NEUROLOGIC/PSYCHIATRIC: Negative for anxiety, depression. ALLERGY/IMMUNOLOGIC: Negative for skin rash, bleeding tendency. Otherwise, negative except as stated per HPI. PHYSICAL EXAMINATION: VITAL SIGNS: On admission, blood pressure 193/91, pulse 61, respiratory rate 20, temperature 98.1 degrees Fahrenheit, and O2 saturation 93% on room air. GENERAL APPEARANCE: This is a 78-year-old female alert and responsive with mild dysarthria in no acute distress. HEENT: Pupils are equal, round, reactive to light and accommodation. Extraocular muscles are intact. No scleral icterus. No conjunctival injection. Nares patent. OP is clear. NECK: Supple. No cervical adenopathy. No thyromegaly. No carotid bruits. No JVD appreciated. Cervical spine with full active and passive range of motion. No meningeal signs noted. CHEST: Lungs are clear to auscultation bilaterally. Diminished breath sounds in the bases. CARDIOVASCULAR: S1 and S2 with a 2/6 systolic ejection murmur at the apex. ABDOMEN: Rounded, soft, nontender, and nondistended. Ventral abdominal hernia palpated. No rebound or guarding noted. EXTREMITIES: Warm and dry with fair turgor. Tenderness to palpation of the left hip region and greater trochanter. Pulses are palpable distally at the dorsalis pedis, posterior tibial, and popliteal arteries bilaterally. Capillary refill less than 2 seconds. Generalized muscle atrophy noted. Mild tenderness to palpation of the left proximal forearm. NEUROLOGIC: Cranial nerves 2 through 12 are grossly intact. Mild dysarthria. No other gross focal deficits appreciated. The patient not observed ambulatory during this exam. Moves all extremities on command. PERTINENT LAB AND X-RAY FINDINGS: Sodium 135, potassium 3.3, chloride 94, CO2 of 33, BUN 21, creatinine 1.27, estimated GFR 41, glucose 121, lactic acid level 1.3, calcium 9.0. LFTs within normal limits. Troponin I negative x2. TSH 2.12. CBC showed a white blood cell count of 8.6, hemoglobin 12, hematocrit 36, platelet count 209 with 78% neutrophils. Urinalysis negative. CT of the brain dated 09/11/2018, showed no acute intracranial process. Portable chest x-ray dated 09/11/2018, showed no acute process, hyperinflation noted. Two views of the left hip dated 09/11/2018, showed postoperative changes with ill-defined lucency at the femoral neck. CT of the cervical spine dated 09/11/2018, showed no acute process. CT of the pelvis dated 09/11/2018, showed comminuted proximal left femoral fracture at the base of the femoral neck encompassing the previously placed left hip hardware. Ventral abdominal wall hernia noted. Four views of the left elbow dated 09/11/2018, showed remote fracture of the proximal radial head and neck with considerable bone loss. EKG dated 09/11/2018, by my interpretation shows sinus bradycardia, heart rate is in the 50s. Normal axis. No acute ST-T wave changes appreciated. ASSESSMENT AND PLAN: 1. Transient ischemic attack. The patient will be admitted to the stroke unit. We will proceed with general stroke protocol. MRI imaging of the brain pending. Check 2D transthoracic echocardiogram and carotid Doppler study. PT, OT, and Speech Therapy evaluation pending. Continue aspirin 81 mg daily. 2. Left hip fracture. Appears recurrent after mechanical fall. Orthopedic Surgery consultation has been obtained with recommendations for conservative management given acute transient ischemic attack. Obtain PT and OT evaluation for general functional assessment. Inpatient rehabilitation evaluation. Pain control as clinically indicated. 3. Left radial head fracture. Appears subacute given the patient's prior history of fall in February 2018. Supportive management and conservative care. Pain control as clinically indicated. 4. Hypokalemia. Potassium chloride supplementation with serial potassium monitoring. Add 40 mEq of KCl to current normal saline. 5. Tobacco abuse. We will offer smoking cessation resources prior to discharge. Consider transdermal nicotine replacement. 6. Chronic kidney disease, stage 3. Continue IV fluids as outlined previously. Avoid nephrotoxic agents and limit contrast exposure. Repeat creatinine in the a.m. 7. Recurrent falls. See above. General fall risk precautions. Inpatient rehabilitation evaluation. 8. Prophylaxis. SCDs while in bed. Pepcid 20 mg p.o. b.i.d. PT, OT, and Speech Therapy evaluation pending. 9. Code status is do not attempt resuscitation, confirmed with the patient's daughters, who are medical guth[employer] of radiator mechanic. Job ID: [id number]
[2018-09-11] MEDS: NS 0.9% w/ 40 MEQ KCL 1,000 ML IV SCH ×2 (13:00→21:06)
[2018-09-11] MEDS: HYDROcodone/Acetaminophen 5/325 mg Tablet PO PRN (14:27)
--- NOTE | 2018-09-11 14:56 | ULT ---
BILATERAL CAROTID DUPLEX ULTRASOUND INCLUDING COLOR AND SPECTRAL DOPPLER IMAGING: DATE: 09/11/18 HISTORY: TIA. FINDINGS: There is extensive visual plaque in both right and left distal CCAs and proximal ICAs and proximal EC As. PSV Right ICA: 117 cm/sec EDV: 38 cm/sec ICA/CCA Ratio: 1.5 PSV Left ICA: 86 cm/sec EDV: 25 cm/sec ICA/CCA Ratio: 1.1 Vertebral flow is antegrade. IMPRESSION: Extensive bilateral visual plaque, evidence for carotid artery vascular disease. No hemodynamically s ignificant stenosis. POS: [facility]
--- NOTE | 2018-09-11 15:39 | CON ---
DATE OF CONSULTATION: 09/11/2018 HISTORY OF PRESENT ILLNESS: Ms. Christine is a 78-year-old white female who has been living at home. The patient fell in February and sustained an intertrochanteric fracture of the left hip. She underwent open reduction and internal fixation using a compression hip screw. The fracture healed very well. The patient went to rehab and eventually went back home living alone. The two daughters states that last night, the patient was getting out of bed, she slipped and fell onto her left buttocks and hip area and had immediate pain in the left hip and groin region. The patient was brought to the emergency room. X-rays revealed a nondisplaced fracture at the base of the neck of the proximal left femur. The compression hip screw device still in good position and the previous intertrochanteric fracture is in good alignment and well healed. There are no arthritic changes in the left hip. The patient did have difficulty moving her left arm and left leg and had some difficulty and slurring with her speech. She has been admitted and currently undergoing workup for a possible stroke. I was consulted for the left hip fracture. PAST MEDICAL HISTORY: Medical illnesses; hypertension, chronic obstructive pulmonary disease. The patient is status post gastric ulcers, status post perforation, history of atrial arrhythmias and fibrillation. PAST SURGICAL HISTORY: Repair of a perforated peptic ulcer, ORIF of intertrochanteric fracture of the left hip, and tonsillectomy. ALLERGIES: TO BARBITURATES. PHYSICAL EXAMINATION: The patient is a thin female. She is able to cooperate with the examination. She has pain with any attempts of movement of the left hip. The left lower extremity at the time of my exam has fairly good strength and the patient is able to move her left ankle and toes. She has good peripheral pulses in the left ankle and foot. DIAGNOSTIC STUDIES: X-rays were reviewed of the left hip and there is a compression hip screw in the left proximal femur with a well-healed and an excellent position of the intertrochanteric fracture. There is a new fracture at the base of the femoral neck, which extends into the greater trochanter. There are no arthritic changes in the hip joint. X-rays of the left elbow shows a nonunion of the radial neck fracture. No arthritic changes in the elbow joint. PLAN: The patient already has good internal fixation with the large compression hip screw and I would therefore not recommend any surgical intervention for the nondisplaced acute neck fracture of the proximal femur. I discussed this with the patient's daughters and they both agree. We will have Physical and Occupational Therapy work with the patient and get her out of bed and up ambulating as soon as possible. Job ID: [id number]
[2018-09-11] MEDS: Ferrous Sulfate 325 MG TAB PO SCH (17:18)
[2018-09-11] MEDS: Nicotine 14 MG PATCH TOP SCH (17:19)
[2018-09-11] MEDS: Famotidine 20 MG TAB PO SCH (21:08)
[2018-09-11] MEDS: Atorvastatin Calcium 40 MG TAB PO SCH (21:08)
[2018-09-11] MEDS: Lorazepam 0.5 MG TAB PO SCH (21:09)
[2018-09-11] MEDS: Montelukast Sodium 10 mg Tablet PO SCH (21:09)
[2018-09-12] MEDS: HYDROcodone/Acetaminophen 5/325 mg Tablet PO PRN ×3 (00:17→15:15)
[2018-09-12 05:59] LABS: Anion Gap 11 mmol/L (10-20); BUN (Urea Nitrogen) 16 mg/dL (9.8-20.1); Calc. Creatinine Clearance 29 mL/min (70-130); Calcium 8.4 mg/dL (7.8-10.44); Carbon Dioxide 26 mmol/L (23-31); Cardiac Risk 2.4 (Less than 4.5); Chloride 103 mmol/L (98-107); Cholesterol 146 mg/dl (< 200 Desired); Estimated GFR-MDRD 57; Glucose 90 mg/dL (83-110); HDL Cholesterol 62 mg/dL (>60 Neg Risk); LDL Cholesterol, Calculated 70 mg/dL; Magnesium 1.9 mg/dL (1.6-2.6); Potassium 4.6 mmol/L (3.5-5.1); Sodium 135 mmol/L (136-145); Triglycerides 72 mg/dL (Less than 150)
[2018-09-12] MEDS: NS 0.9% w/ 40 MEQ KCL 1,000 ML IV SCH ×2 (06:16→16:16)
[2018-09-12 06:57] LABS: Band 4 % (5-11); Hemoglobin 10.7 g/dL (12.0-16.0); Lymphocytes 26 % (21-51); MDiff Complete? YES; Mean Corpuscular HGB CONC 33.5 g/dL (32.0-36.0); Mean Corpuscular Hemoglobin 29.8 pg (27.0-31.0); Mean Corpuscular Volume 88.9 fL (78.0-98.0); Mean Platelet Volume 7.2 fL (7.4-10.4); Monocytes 9 % (0-10); Neutrophil 61 % (42-75); Platelet Count 175 thou/uL (130-400); RBC Distribution Width 13.4 % (11.5-14.5); Red Blood Cell (RBC) Count 3.61 mill/uL (4.20-5.40); White Blood Cell (WBC) Count 4.4 thou/uL (4.8-10.8)
[2018-09-12] MEDS: hydrALAZINE 20 MG/ML VIAL SLOW IVP PRN ×2 (07:24→15:07)
[2018-09-12] MEDS: Ondansetron PF 4 MG/2 ML Vial IVP PRN ×2 (07:25→13:45)
[2018-09-12] MEDS: Aspirin 81 mg Enteric Coated Tablet PO SCH (09:14)
[2018-09-12] MEDS: Atenolol 50 MG TAB PO SCH (09:14)
[2018-09-12] MEDS: Famotidine 20 MG TAB PO SCH ×2 (09:14→20:38)
[2018-09-12] MEDS: Polyethylene Glycol 3350 17 GM Packet PO SCH (09:14)
[2018-09-12] MEDS: Ferrous Sulfate 325 MG TAB PO SCH ×2 (09:14→16:34)
[2018-09-12 11:29] LABS: Folate (Folic Acid) 7.6 ng/mL (7.0-31.4)
--- NOTE | 2018-09-12 11:48 | PDOC.PN ---
- Subjective Encounter Start Date: 09/12/18 Encounter Start Time: 08:00 Subjective: awake and oriented, is wearing hearing device. c/o nausea -: 2 daughters at bedside, has pain on moving left LE -: still has left sided numbess and a bit of weakness - Objective Resuscitation Status - Order Detail: 09/11/18 09:44 Resuscitation Status Routine Resuscitation Status: DNAR: NO Resuscitation Discussed with: Confirmed with daughters MAR Reviewed: Yes Vital Signs & Weight: Vital Signs (12 hours) Temp Pulse Resp BP BP Pulse Ox 09/12/18 09:14 60 223/104 H 09/12/18 07:57 98 F 60 20 223/101 H 97 09/12/18 07:40 97 09/12/18 07:24 57 L 223/101 H 09/12/18 04:00 99 F 53 L 16 155/75 H 96 09/12/18 00:00 97.7 F 59 L 16 142/66 H 96 Weight Weight 82 lb 9 oz I&O: 09/11/18 09/12/18 09/13/18 06:59 06:59 06:59 Intake Total 2486 300 Output Total 725 Balance 1761 300 Result Diagrams: 09/12/18 05:07 09/12/18 05:07 Phys Exam - Physical Examination HEENT: PERRLA, moist MMs Neck: no JVD, supple Respiratory: no wheezing, no rales Cardiovascular: RRR Gastrointestinal: soft, non-tender, positive bowel sounds Musculoskeletal: no edema, pulses present Neurological: moves all 4 limbs mild left hemiparesis with parasthesias Psychiatric: normal affect, A&O x 3 Dx/Plan (1) Acute CVA (cerebrovascular accident) Code(s): I63.9 - CEREBRAL INFARCTION, UNSPECIFIED Status: Acute Comment: right thalamic lacunar infarct (2) Fracture of femoral neck, left, closed Code(s): S72.002A - FRACTURE OF UNSP PART OF NECK OF LEFT FEMUR, INIT Status: Acute Qualifiers: Encounter type: subsequent encounter Comment: for med mgmt (3) Left radial fracture Code(s): S52.92XA - UNSP FRACTURE OF LEFT FOREARM, INIT FOR CLOS FX Status: Chronic Qualifiers: Encounter type: sequela Radius location: neck Fracture type: closed Comment: non union (4) Afib Code(s): I48.91 - UNSPECIFIED ATRIAL FIBRILLATION Status: Chronic Qualifiers: Atrial fibrillation type: paroxysmal Qualified Code(s): I48.0 - Paroxysmal atrial fibrillation (5) Chronic anemia Code(s): D64.9 - ANEMIA, UNSPECIFIED Status: Chronic (6) Dyslipidemia Code(s): E78.5 - HYPERLIPIDEMIA, UNSPECIFIED Status: Chronic (7) Ventral hernia Code(s): K43.9 - VENTRAL HERNIA WITHOUT OBSTRUCTION OR GANGRENE Status: Chronic Qualifiers: Obstruction and gangrene presence: without obstruction or gangrene Qualified Code(s): K43.9 - Ventral hernia without obstruction or gangrene (8) Emphysema/COPD Code(s): J43.9 - EMPHYSEMA, UNSPECIFIED Status: Chronic Qualifiers: Emphysema type: unspecified Qualified Code(s): J43.9 - Emphysema, unspecified (9) Hypertension Code(s): I10 - ESSENTIAL (PRIMARY) HYPERTENSION Status: Chronic Qualifiers: Hypertension type: essential hypertension Qualified Code(s): I10 - Essential (primary) hypertension (10) Tobacco abuse Code(s): Z72.0 - TOBACCO USE Status: Chronic - Plan is on asp, lipitor, atenolol, duonebs -: neuro consultation -: PT/OT eval, encourage po intake, ensure 1 can bid -: likely dc plan is to rehab -: d/w family and patient * . Review of Systems - Medications/Allergies Allergies/Adverse Reactions: Allergies Allergy/AdvReac Type Severity Reaction Status Date / Time Barbiturates Allergy Verified 02/27/18 20:28 morphine Allergy Verified 09/11/18 11:23 Medications: Current Medications Acetaminophen (Tylenol) 1,000 mg PO Q6H PRN PRN Reason: Mild Pain (1-3) Hydrocodone Bitart/Acetaminophen (Montalba 5/325) 1 tab PO Q4H PRN PRN Reason: Moderate Pain (4-6) Last Admin: 09/11/18 14:27 Dose: 1 tab Hydrocodone Bitart/Acetaminophen (Montalba 5/325) 2 tab PO Q4H PRN PRN Reason: Severe Pain (7-10) Last Admin: 09/12/18 00:17 Dose: 2 tab Albuterol Sulfate (Proventil Hfa) 2 puff INH Q6HR PRN PRN Reason: SOB &/or Wheezing Albuterol/Ipratropium (Duoneb) 3 ml NEB TID-RT [facility] Last Admin: 09/12/18 10:41 Dose: Not Given Aspirin (Ecotrin) 81 mg PO DAILY [facility] Last Admin: 09/12/18 09:14 Dose: 81 mg Atenolol (Tenormin) 50 mg PO DAILY [facility] Last Admin: 09/12/18 09:14 Dose: 50 mg Atorvastatin Calcium (Lipitor) 40 mg PO HS [facility] Last Admin: 09/11/18 21:08 Dose: 40 mg Clonidine (Catapres) 0.1 mg PO Q4H PRN PRN Reason: SBP Greater Than 180 Last Admin: 09/11/18 18:23 Dose: 0.1 mg Famotidine (Pepcid) 20 mg PO BID [facility] Last Admin: 09/12/18 09:14 Dose: 20 mg Ferrous Sulfate (Feosol) 325 mg PO BID-[facility] Last Admin: 09/12/18 09:14 Dose: 325 mg Hydralazine HCl (Apresoline) 10 mg SLOW IVP Q4H PRN PRN Reason: BP > 220/110 Last Admin: 09/12/18 07:24 Dose: 10 mg Potassium Chloride/Sodium Chloride (Ns 0.9% W/ 40 Meq Kcl) 1,000 mls @ 100 mls/ hr IV .Q10H [facility] Last Admin: 09/12/18 06:16 Dose: 1,000 mls Lorazepam (Ativan) 0.5 mg PO HS [facility] Last Admin: 09/11/18 21:09 Dose: 0.5 mg Montelukast Sodium (Singulair) 10 mg PO QPM [facility] Last Admin: 09/11/18 21:09 Dose: 10 mg Nicotine (Nicoderm Patch) 14 mg TOP Q24HR [facility] Last Admin: 09/11/18 17:19 Dose: 14 mg Ondansetron HCl (Zofran Odt) 4 mg PO Q6H PRN PRN Reason: Nausea/Vomiting Ondansetron HCl (Zofran) 4 mg IVP Q6H PRN PRN Reason: Nausea/Vomiting Last Admin: 09/12/18 07:25 Dose: 4 mg Polyethylene Glycol (Miralax) 17 gm PO DAILY [facility] Last Admin: 09/12/18 09:14 Dose: 17 gm Sodium Chloride (Flush - Normal Saline) 10 ml IVF PRN PRN PRN Reason: Saline Flush
[2018-09-12] MEDS ORDERED: ISOVUE-370 76%-LOCM 1 ML ONE (13:03)
--- NOTE | 2018-09-12 13:27 | CT ---
BRAIN CTA WITH 3D RENDERING NECK CTA WITH 3D RENDERING: Date: 09/12/18 HISTORY: Stroke, ataxia, and slurred speech. FINDINGS: CTA HEAD: Borderline small right and left vertebral arteries and basilar artery. Calcified plaques are noted wi thin the right and left intracranial internal carotid arteries with less than 50% stenotic changes us ing NASCET criteria. Right and left MCAs are unremarkable, in particular the M1 segment regions, with out evidence for thrombus. Anterior cerebral arteries and posterior cerebral artery regions are unrem arkable. Noncontrast brain CT imaging demonstrates no mass or bleed, or other acute process. Stable from prior study. IMPRESSION: Unremarkable CT angiogram of the brain. No evidence for major branch occlusion. CTA NECK: There are calcified plaques involving the origins of both right and left internal carotid arteries wi th slightly less than 50% stenosis of the origin of the right internal carotid artery, using NASCET c riteria. Right and left vertebral arteries are unremarkable bilaterally. There are a few other scatte red calcified plaques. There is some biapical chest pleural thickening. No evidence for adenopathy wi thin the neck or other abnormal soft tissue mass or abnormal fluid collection. IMPRESSION: 1. Scattered calcified plaques within the carotid and vertebral arteries, evidence for arteriovascul ar disease. 2. Less than 50% stenosis of the proximal right ICA using NASCET criteria. POS: [facility]
--- NOTE | 2018-09-12 13:42 | CON ---
DATE OF TELEMEDICINE CONSULTATION: 09/12/2018 POLICE PILOT: DARRELL CHIEF COMPLAINT: Acute stroke. HISTORY OF PRESENT ILLNESS: The patient lives by herself. She is 78 years old and she is left-handed. The patient called her daughter reported something was wrong and she felt that the left arm was weak and her right arm was numb and she felt left arm was heavy. She had difficulty with coordination of the left hand and she fell off the bed according to the daughter. Her daughter called her neighbors, who came and helped her and they found her the floor. The patient had a previous hip fracture in February. At this time, she is complaining of pain in the left leg and she was brought to the hospital for evaluation of stroke. PAST MEDICAL HISTORY: The patient has history of osteoporosis and previous falls in February when she was walking at a grocery store she fell and she turned, and she also had a left hip fracture after that along with left radial fracture. She has hypertension, COPD, multiple falls in the past, gastric ulcer, status post perforation, ventral abdominal hernia, history of atrial arrhythmia with atrial fibrillation. She was on Eliquis, which was stopped since . PAST SURGICAL HISTORY: She had repair of perforated peptic ulcer, left hip open reduction and internal fixation of the fracture, and she is status post tonsillectomy and adenoidectomy. MEDICATIONS: At home, she takes; 1. Ventolin. 2. Atenolol. 3. Lorazepam. 4. Mirtazapine. 5. Singulair. 6. Ferrous sulfate. 7. DuoNeb. 8. Midodrine. ALLERGIES: SHE IS ALLERGIC TO BARBITURATES. FAMILY HISTORY: Positive for hypertension. SOCIAL HISTORY: The patient lives on her own. She smokes up to one pack per day and has been a chronic smoker. She does not drink alcohol or use drugs. She ambulates with a walker. She does have history of multiple falls. FAMILY HISTORY: Her father in his late 70s. He was alcoholic. Mother after 75 years of age. She had lung cancer. The patient had a brother, who was murdered at age 27. The patient has four children, two boys and girls. The daughters have thyroid issues. One of the sons had surgery for femoral artery occlusion. One son just had a cardiac workup. Children are 60, 52, 58, and 56. REVIEW OF SYSTEMS: PULMONARY: Positive for cough and shortness of breath. GI: Positive for prior history of ulcer. NEUROLOGICAL: Positive for left arm incoordination, numbness, and weakness. CARDIAC: Positive for atrial fibrillation. DERMATOLOGIC: Negative for rash. HEMATOLOGIC: Negative for bleeding diathesis. ENT: Negative for any sinus disease. LABORATORY WORKUP: White count 4.4, hemoglobin 10.7, hematocrit 32, platelets 175. Chemistry; sodium 135, potassium 4.6, chloride 103, BUN 16, creatinine 0.94, glucose 90, and calcium 8.4, magnesium 1.9. Triglycerides 72, cholesterol 146, LDL 70. MRI of the brain, small acute lacunar infarct in peripheral right thalamic region and on the MRI, she has cortical atrophy, mild to moderate chronic ischemic white matter changes. Carotid Doppler was completed. Carotid Doppler shows extensive bilateral visual clot, evidence for carotid artery vascular disease. No hemodynamically significant stenosis. Echocardiogram reports are pending. I requested a CT angiogram. PHYSICAL EXAMINATION: VITAL SIGNS: She is only 87 pounds per family. Her blood pressure was 223/104, pulse 60, and temperature 98. GENERAL APPEARANCE: Thin-built lady, who is frail. She had pain in the shoulder and restricted movement of the left leg. CHEST: Clear vesicular breathing. CARDIOVASCULAR: S1 and S2 heard. No murmurs. ABDOMEN: Soft. NEUROLOGICAL: Higher intellectual functions. Normal orientation to time, place , and person. Appropriate conversation. Cranial nerves, normal extraocular movements. Pupils are reactive to light at 2 mm bilaterally. Tongue midline. No atrophy noted. Normal sensation of face bilaterally. No facial asymmetry. Normal hearing to touch. Hearing to finger rub. Normal elevation of palate. Tongue midline. Motor, bulk normal, tone normal. Strength 5/5 throughout in both upper and lower extremities. Left leg limited ability to test in the proximal segment due to restriction with pain and movement due to hip fracture and distal strength was normal. Muscle groups tested are iliopsoas, hamstrings, quadriceps, ankle dorsiflexion, plantar flexion, deltoid, biceps, triceps, wrist extension and flexion, finger extension and flexion. Cerebellar, she had mild incoordination of the left hand, difficult to test left lower extremity. Cerebellar is normal on the right side. Normal utybby-br-duvr bilaterally and normal [id number] on the right leg and sensory, normal touch bilaterally. Deep tendon reflexes were absent. IMPRESSION: The patient is a 78-year-old frail lady, who has chronic obstructive pulmonary disease and she had stroke-like symptoms with left-sided incoordination and weakness in the left hand and she never had a prior stroke. She also complained during the conversation about memory loss and her examination showed left upper extremity incoordination. It was difficult to examine proximal left lower extremity due to hip issues. Rest of the neurological exam was normal. She has a right thalamic infarct, which can explain the left-sided incoordination. TREATMENT RECOMMENDATIONS: 1. I would suggest consulting with Cardiology to see if she needs to be back on Eliquis. 2. Complete echocardiogram. 3. I requested CT angiography of the head and neck and we will complete that study. Please call Neurology if you have any further questions. Job ID: [id number] MTDD
[2018-09-12] MEDS ORDERED: Promethazine HCl 25 MG/ML VIAL SLOW IVP SCH (16:15)
[2018-09-12] MEDS: Nicotine 14 MG PATCH TOP SCH (16:38)
[2018-09-12] MEDS: cloNIDine 0.1 MG TAB PO PRN (16:51)
[2018-09-12] MEDS ORDERED: tiZANidine HCl 4 MG TAB PO PRN (17:42)
[2018-09-12] MEDS ORDERED: Lisinopril/Hydrochlorothiazide 20/25 mg Tablet PO SCH (18:00)
[2018-09-12] MEDS: Apixaban 2.5 MG TAB PO SCH (20:37)
[2018-09-12] MEDS: Atorvastatin Calcium 40 MG TAB PO SCH (20:37)
[2018-09-12] MEDS: hydrALAZINE 25 MG TAB PO SCH (20:39)
[2018-09-12] MEDS: Lorazepam 0.5 MG TAB PO SCH (20:40)
[2018-09-12] MEDS: Oxymetazoline HCl 0.05% ( 15 ML ) NASAL SCH (20:41)
[2018-09-12] MEDS: Sodium Chloride 1 GM TAB PO SCH (20:41)
[2018-09-12] MEDS: Montelukast Sodium 10 mg Tablet PO SCH (20:41)
[2018-09-13] MEDS: hydrALAZINE 25 MG TAB PO SCH ×2 (08:53→21:19)
[2018-09-13] MEDS: Ferrous Sulfate 325 MG TAB PO SCH ×2 (08:54→17:30)
[2018-09-13] MEDS: Famotidine 20 MG TAB PO SCH ×2 (08:54→21:19)
[2018-09-13] MEDS: Digoxin 0.125 MG TAB PO SCH (08:54)
[2018-09-13] MEDS: Apixaban 2.5 MG TAB PO SCH (08:54)
[2018-09-13] MEDS: Atenolol 50 MG TAB PO SCH (08:54)
[2018-09-13] MEDS: Aspirin 81 mg Enteric Coated Tablet PO SCH (08:54)
[2018-09-13] MEDS: Sodium Chloride 1 GM TAB PO SCH ×2 (08:54→21:20)
[2018-09-13] MEDS: Lisinopril/Hydrochlorothiazide 20 mg/12.5 mg Tablet PO SCH (08:54)
[2018-09-13] MEDS: Polyethylene Glycol 3350 17 GM Packet PO SCH (08:55)
[2018-09-13] MEDS: Oxymetazoline HCl 0.05% ( 15 ML ) NASAL SCH ×2 (08:55→21:20)
--- NOTE | 2018-09-13 11:03 | PDOC.PN ---
- Subjective Encounter Start Date: 09/13/18 Encounter Start Time: 09:15 Subjective: is awake and oriented now -: had a bit of confusion overnight -: has not amb yet, ate her breakfast this am, no nausea - Objective Resuscitation Status - Order Detail: 09/11/18 09:44 Resuscitation Status Routine Resuscitation Status: DNAR: NO Resuscitation Discussed with: Confirmed with daughters KWASI Reviewed: Yes Vital Signs & Weight: Vital Signs (12 hours) Temp Pulse Resp BP BP Pulse Ox 09/13/18 08:55 99 09/13/18 08:54 70 09/13/18 08:53 70 145/67 H 09/13/18 07:59 97.9 F 70 20 145/67 H 94 L 09/13/18 06:58 70 16 95 09/13/18 04:00 98.2 F 55 L 16 130/64 96 09/13/18 00:00 98.1 F 52 L 16 111/55 L 95 Weight Weight 82 lb 9 oz I&O: 09/12/18 09/13/18 09/14/18 06:59 06:59 06:59 Intake Total 2486 800 Output Total 725 2425 Balance 1761 -1625 Result Diagrams: 09/12/18 05:07 09/12/18 05:07 Phys Exam - Physical Examination HEENT: PERRLA, moist MMs Neck: no JVD, supple Respiratory: no wheezing, no rales Cardiovascular: RRR, no significant murmur Gastrointestinal: soft, non-tender, positive bowel sounds hernia++ Musculoskeletal: no edema, pulses present Neurological: non-focal, moves all 4 limbs left hemiparesis Psychiatric: normal affect, A&O x 3 Dx/Plan (1) Acute CVA (cerebrovascular accident) Code(s): I63.9 - CEREBRAL INFARCTION, UNSPECIFIED Status: Acute Comment: right thalamic lacunar infarct (2) Fracture of femoral neck, left, closed Code(s): S72.002A - FRACTURE OF UNSP PART OF NECK OF LEFT FEMUR, INIT Status: Acute Qualifiers: Encounter type: subsequent encounter Comment: for med mgmt (3) Left radial fracture Code(s): S52.92XA - UNSP FRACTURE OF LEFT FOREARM, INIT FOR CLOS FX Status: Chronic Qualifiers: Encounter type: sequela Radius location: neck Fracture type: closed Comment: non union (4) Afib Code(s): I48.91 - UNSPECIFIED ATRIAL FIBRILLATION Status: Chronic Qualifiers: Atrial fibrillation type: paroxysmal Qualified Code(s): I48.0 - Paroxysmal atrial fibrillation (5) Chronic anemia Code(s): D64.9 - ANEMIA, UNSPECIFIED Status: Chronic (6) Dyslipidemia Code(s): E78.5 - HYPERLIPIDEMIA, UNSPECIFIED Status: Chronic (7) Ventral hernia Code(s): K43.9 - VENTRAL HERNIA WITHOUT OBSTRUCTION OR GANGRENE Status: Chronic Qualifiers: Obstruction and gangrene presence: without obstruction or gangrene Qualified Code(s): K43.9 - Ventral hernia without obstruction or gangrene (8) Emphysema/COPD Code(s): J43.9 - EMPHYSEMA, UNSPECIFIED Status: Chronic Qualifiers: Emphysema type: unspecified Qualified Code(s): J43.9 - Emphysema, unspecified (9) Hypertension Code(s): I10 - ESSENTIAL (PRIMARY) HYPERTENSION Status: Chronic Qualifiers: Hypertension type: essential hypertension Qualified Code(s): I10 - Essential (primary) hypertension (10) Tobacco abuse Code(s): Z72.0 - TOBACCO USE Status: Chronic (11) Mild cognitive impairment Code(s): G31.84 - MILD COGNITIVE IMPAIRMENT, SO STATED Status: Chronic - Plan is on aspirin, lipitor, atenolol, lisinopril/hctz, hydralazine, eliquis -: nebs, norco prn -: to ambulate with PT -: has started to eat from this am -: will need rehab, d/w daughter and patient at bedside * . Review of Systems - Medications/Allergies Allergies/Adverse Reactions: Allergies Allergy/AdvReac Type Severity Reaction Status Date / Time Barbiturates Allergy Verified 02/27/18 20:28 morphine Allergy Verified 09/11/18 11:23 Medications: Current Medications Acetaminophen (Tylenol) 1,000 mg PO Q6H PRN PRN Reason: Mild Pain (1-3) Hydrocodone Bitart/Acetaminophen ([place] 5/325) 1 tab PO Q4H PRN PRN Reason: Moderate Pain (4-6) Last Admin: 09/11/18 14:27 Dose: 1 tab Hydrocodone Bitart/Acetaminophen ([place] 5/325) 2 tab PO Q4H PRN PRN Reason: Severe Pain (7-10) Last Admin: 09/12/18 15:15 Dose: 2 tab Albuterol Sulfate (Proventil Hfa) 2 puff INH Q6HR PRN PRN Reason: SOB &/or Wheezing Albuterol/Ipratropium (Duoneb) 3 ml NEB TID-RT [facility] Last Admin: 09/13/18 06:58 Dose: 3 ml Apixaban (Eliquis) 2.5 mg PO BID [facility] Last Admin: 09/13/18 08:54 Dose: 2.5 mg Aspirin (Ecotrin) 81 mg PO DAILY [facility] Last Admin: 09/13/18 08:54 Dose: 81 mg Atenolol (Tenormin) 50 mg PO DAILY [facility] Last Admin: 09/13/18 08:54 Dose: 50 mg Atorvastatin Calcium (Lipitor) 40 mg PO HS [facility] Last Admin: 09/12/18 20:37 Dose: 40 mg Clonidine (Catapres) 0.1 mg PO Q4H PRN PRN Reason: SBP Greater Than 180 Last Admin: 09/12/18 16:51 Dose: 0.1 mg Digoxin (Lanoxin) 0.125 mg PO DAILY [facility] Last Admin: 09/13/18 08:54 Dose: 0.125 mg Famotidine (Pepcid) 20 mg PO BID [facility] Last Admin: 09/13/18 08:54 Dose: 20 mg Ferrous Sulfate (Feosol) 325 mg [facility] B[facility] Last Admin: 09/13/18 08:54 Dose: 325 mg Lisinopril/HCTZ (Prinizide 20-12.5) 1 tab PO DAILY [facility] Last Admin: 09/13/18 08:54 Dose: 1 tab Hydralazine HCl (Apresoline) 10 mg SLOW IVP Q4H PRN PRN Reason: BP > 220/110 Last Admin: 09/12/18 15:07 Dose: 10 mg Hydralazine HCl (Apresoline) 75 mg PO BID [facility] Last Admin: 09/13/18 08:53 Dose: 75 mg Isosorbide Mononitrate (Imdur Er) 30 mg PO DAILY [facility] Last Admin: 09/13/18 08:53 Dose: 30 mg Lorazepam (Ativan) 0.5 mg PO HS [facility] Last Admin: 09/12/18 20:40 Dose: 0.5 mg Montelukast Sodium (Singulair) 10 mg PO QPM [facility] Last Admin: 09/12/18 20:41 Dose: 10 mg Nicotine (Nicoderm Patch) 14 mg TOP Q24HR [facility] Last Admin: 09/12/18 16:38 Dose: 14 mg Ondansetron HCl (Zofran Odt) 4 mg PO Q6H PRN PRN Reason: Nausea/Vomiting Ondansetron HCl (Zofran) 4 mg IVP Q6H PRN PRN Reason: Nausea/Vomiting Last Admin: 09/12/18 13:45 Dose: 4 mg Oxymetazoline HCl (Oxymetazoline Hcl) 1 sprays NASAL BID [facility] Last Admin: 09/13/18 08:55 Dose: 1 spray Polyethylene Glycol (Miralax) 17 gm PO DAILY [facility] Last Admin: 09/13/18 08:55 Dose: 17 gm Sodium Chloride (Flush - Normal Saline) 10 ml IVF PRN PRN PRN Reason: Saline Flush Sodium Chloride (Sodium Chloride) 1 gm PO BID [facility] Last Admin: 09/13/18 08:54 Dose: 1 gm Tizanidine HCl (Zanaflex) 1 mg PO Q8H PRN PRN Reason: Muscle Spasm
[2018-09-13] MEDS: HYDROcodone/Acetaminophen 5/325 mg Tablet PO PRN ×2 (11:42→21:23)
[2018-09-13] MEDS ORDERED: Lidocaine 5% Patch TD SCH (16:30)
[2018-09-13] MEDS: Nicotine 14 MG PATCH TOP SCH (17:29)
[2018-09-13] MEDS: Atorvastatin Calcium 40 MG TAB PO SCH (21:18)
[2018-09-13] MEDS: Montelukast Sodium 10 mg Tablet PO SCH (21:19)
[2018-09-13] MEDS: Lorazepam 0.5 MG TAB PO SCH (21:19)
[2018-09-14] MEDS ORDERED: Lidocaine Patch Removal 1 EACH TOP SCH (04:30)
[2018-09-14] MEDS ORDERED: Rivaroxaban 15 MG TAB PO SCH (06:00)
--- NOTE | 2018-09-14 07:17 | CON ---
DATE OF CONSULTATION: 09/12/2018 REASON FOR CONSULTATION: CVA and previous history of atrial fibrillation. HISTORY OF PRESENT ILLNESS: Ms. Christine is a 78-year-old woman, who recently had a prolonged hospitalization in addition to rehab. Her daughter transferred to [place]. She recently presented with TIA like symptoms. She was found to have a thalamic stroke. She was on Eliquis for atrial fibrillation. The daughter and the patient both state she has been taking the medication intermittently. She states she was taking intermittently because she felt it caused headaches. She was on 2.5 mg p.o. b.i.d. Her most recent echo showed LVEF 55% to 60% with mildly elevated right ventricular systolic pressures. PAST MEDICAL HISTORY: COPD, hypertension, current tobacco abuse, osteoporosis, recent left hip fracture and radial head fracture, previous gastric ulcer status post perforation, ventral abdominal hernia, tonsillectomy, ORIF. HOME MEDICATIONS: Include: 1. Lorazepam. 2. Atenolol. 3. Singulair. 4. Iron sulfate. 5. DuoNeb. 6. Midodrine. 7. Ventolin. ALLERGIES: BARBITURATES. SOCIAL HISTORY: Continued tobacco use. No alcohol use. REVIEW OF SYSTEMS: A 10-point review of systems is reviewed and as above, otherwise negative. PHYSICAL EXAMINATION: GENERAL: Patient is a pleasant 78-year-old woman who is in no acute distress. The patient appears their stated age. VITAL SIGNS: Blood pressure 151/73, pulse 76, temperature 98 NEUROLOGIC: The patient is alert and oriented x3 with no focal neurologic deficits. HEENT: Sclerae without icterus. Mouth has moist mucous membranes with normal pallor. NECK: No JVD. Carotid upstroke brisk. No bruits bilaterally. LUNGS: Clear to auscultation with unlabored respirations. BACK: No scoliosis or kyphosis. CARDIAC: Regular rate and rhythm with normal S1 and S2. No S3 or S4 noted. No significant rubs, murmurs, thrills, or gallops noted throughout the precordium. PMI is not displaced. There is no parasternal heave. ABDOMEN: Soft, nontender, nondistended. No peritoneal signs present. No hepatosplenomegaly. No abnormal striae. EXTREMITIES: 2+ femoral and 2+ dorsalis pedis pulses. No cyanosis, clubbing, or edema. SKIN: No gross abnormalities. PERTINENT LABORATORY DATA: Telemetry monitoring shows sinus rhythm. Hemoglobin 10.7. Creatinine 0.94. IMPRESSION: 1. Paroxysmal atrial fibrillation. 2. Recent stroke. 3. Tobacco abuse. 4. Chronic obstructive pulmonary disease. RECOMMENDATIONS: From a CV standpoint, we would recommend continuing anticoagulation therapy. Given that she feels she has had issues with Eliquis, it is switched to Xarelto. Her creatinine appears stable. We would recommend 20 mg p.o. q.a.m. of Xarelto. We will leave it to the discretion of Neurology on timing. We would also recommend cessation of all tobacco products. Otherwise, I have no further recommendations. At this point, I do not feel a 3-week event recorder would change control specialist. Plan is to follow up with Ms. Christine as an outpatient. Job ID: [id number] JINA
[2018-09-14] MEDS: Lisinopril/Hydrochlorothiazide 20 mg/12.5 mg Tablet PO SCH (08:29)
[2018-09-14] MEDS: Polyethylene Glycol 3350 17 GM Packet PO SCH (08:30)
[2018-09-14] MEDS: Ferrous Sulfate 325 MG TAB PO SCH ×3 (08:30→17:31)
[2018-09-14] MEDS: Aspirin 81 mg Enteric Coated Tablet PO SCH (08:30)
[2018-09-14] MEDS: Famotidine 20 MG TAB PO SCH (08:30)
[2018-09-14] MEDS: hydrALAZINE 25 MG TAB PO SCH (08:30)
[2018-09-14] MEDS: Digoxin 0.125 MG TAB PO SCH (08:30)
[2018-09-14] MEDS: Atenolol 50 MG TAB PO SCH (08:30)
[2018-09-14] MEDS: Oxymetazoline HCl 0.05% ( 15 ML ) NASAL SCH (08:31)
[2018-09-14] MEDS: Sodium Chloride 1 GM TAB PO SCH (08:59)
--- NOTE | 2018-09-14 12:27 | PDOC.PN ---
- Subjective Encounter Start Date: 09/14/18 Encounter Start Time: 09:15 Subjective: awake, slept better last night -: no sob, weakness in left extremity still present - Objective Resuscitation Status - Order Detail: 09/11/18 09:44 Resuscitation Status Routine Resuscitation Status: DNAR: NO Resuscitation Discussed with: Confirmed with daughters MAR Reviewed: Yes Vital Signs & Weight: Vital Signs (12 hours) Temp Pulse Pulse Resp BP BP BP 09/14/18 11:01 59 L 183/86 H 09/14/18 11:00 97.7 F 56 L 20 166/74 H 09/14/18 08:34 09/14/18 08:30 54 L 09/14/18 08:29 54 L 184/87 H 09/14/18 07:07 54 L 16 09/14/18 07:00 97.6 F 66 20 184/87 H 09/14/18 03:52 97.6 F 57 L 18 152/73 H Pulse Ox 09/14/18 11:01 09/14/18 11:00 96 09/14/18 08:34 96 09/14/18 08:30 09/14/18 08:29 09/14/18 07:07 96 09/14/18 07:00 94 L 09/14/18 03:52 95 Weight Weight 82 lb 9 oz I&O: 09/13/18 09/14/18 09/15/18 06:59 06:59 06:59 Intake Total 800 800 Output Total 2425 650 250 Balance -1625 150 -250 Result Diagrams: 09/12/18 05:07 09/12/18 05:07 Phys Exam - Physical Examination HEENT: PERRLA, moist MMs Neck: no JVD, supple Respiratory: no wheezing, no rales Cardiovascular: RRR, no significant murmur Gastrointestinal: soft, non-tender, positive bowel sounds Musculoskeletal: no edema, pulses present Neurological: moves all 4 limbs left hemiparesis Psychiatric: normal affect, A&O x 3 Dx/Plan (1) Acute CVA (cerebrovascular accident) Code(s): I63.9 - CEREBRAL INFARCTION, UNSPECIFIED Status: Acute Comment: right thalamic lacunar infarct (2) Fracture of femoral neck, left, closed Code(s): S72.002A - FRACTURE OF UNSP PART OF NECK OF LEFT FEMUR, INIT Status: Acute Qualifiers: Encounter type: subsequent encounter Comment: for med mgmt (3) Left radial fracture Code(s): S52.92XA - UNSP FRACTURE OF LEFT FOREARM, INIT FOR CLOS FX Status: Chronic Qualifiers: Encounter type: sequela Radius location: neck Fracture type: closed Comment: non union (4) Afib Code(s): I48.91 - UNSPECIFIED ATRIAL FIBRILLATION Status: Chronic Qualifiers: Atrial fibrillation type: paroxysmal Qualified Code(s): I48.0 - Paroxysmal atrial fibrillation (5) Chronic anemia Code(s): D64.9 - ANEMIA, UNSPECIFIED Status: Chronic (6) Dyslipidemia Code(s): E78.5 - HYPERLIPIDEMIA, UNSPECIFIED Status: Chronic (7) Ventral hernia Code(s): K43.9 - VENTRAL HERNIA WITHOUT OBSTRUCTION OR GANGRENE Status: Chronic Qualifiers: Obstruction and gangrene presence: without obstruction or gangrene Qualified Code(s): K43.9 - Ventral hernia without obstruction or gangrene (8) Emphysema/COPD Code(s): J43.9 - EMPHYSEMA, UNSPECIFIED Status: Chronic Qualifiers: Emphysema type: unspecified Qualified Code(s): J43.9 - Emphysema, unspecified (9) Hypertension Code(s): I10 - ESSENTIAL (PRIMARY) HYPERTENSION Status: Chronic Qualifiers: Hypertension type: essential hypertension Qualified Code(s): I10 - Essential (primary) hypertension (10) Tobacco abuse Code(s): Z72.0 - TOBACCO USE Status: Chronic (11) Mild cognitive impairment Code(s): G31.84 - MILD COGNITIVE IMPAIRMENT, SO STATED Status: Chronic - Plan hemo/neurostable -: amb around 40ft with PT -: awaiting rehab placement -: continue asp, lipitor,xarelto, lis/hctz, atenolol, dig, hydralazine, imdur -: nebs prn, lidocaine tts * . Review of Systems - Medications/Allergies Allergies/Adverse Reactions: Allergies Allergy/AdvReac Type Severity Reaction Status Date / Time Barbiturates Allergy Verified 02/27/18 20:28 morphine Allergy Verified 09/11/18 11:23 Medications: Current Medications Acetaminophen (Tylenol) 1,000 mg PO Q6H PRN PRN Reason: Mild Pain (1-3) Hydrocodone Bitart/Acetaminophen ([place] 5/325) 1 tab PO Q4H PRN PRN Reason: Moderate Pain (4-6) Last Admin: 09/11/18 14:27 Dose: 1 tab Hydrocodone Bitart/Acetaminophen ([place] 5/325) 2 tab PO Q4H PRN PRN Reason: Severe Pain (7-10) Last Admin: 09/13/18 21:23 Dose: 2 tab Albuterol Sulfate (Proventil Hfa) 2 puff INH Q6HR PRN PRN Reason: SOB &/or Wheezing Albuterol/Ipratropium (Duoneb) 3 ml NEB TID-RT [facility] Last Admin: 09/14/18 07:07 Dose: 3 ml Aspirin (Ecotrin) 81 mg PO DAILY [facility] Last Admin: 09/14/18 08:30 Dose: 81 mg Atenolol (Tenormin) 50 mg PO DAILY [facility] Last Admin: 09/14/18 08:30 Dose: 50 mg Atorvastatin Calcium (Lipitor) 40 mg PO HS [facility] Last Admin: 09/13/18 21:18 Dose: 40 mg Clonidine (Catapres) 0.1 mg PO Q4H PRN PRN Reason: SBP Greater Than 180 Last Admin: 09/12/18 16:51 Dose: 0.1 mg Digoxin (Lanoxin) 0.125 mg PO DAILY [facility] Last Admin: 09/14/18 08:30 Dose: 0.125 mg Famotidine (Pepcid) 20 mg PO BID [facility] Last Admin: 09/14/18 08:30 Dose: 20 mg Ferrous Sulfate (Feosol) 325 mg PO BID[facility] Last Admin: 09/14/18 08:30 Dose: 325 mg Lisinopril/HCTZ (Prinizide 20-12.5) 1 tab PO DAILY [facility] Last Admin: 09/14/18 08:29 Dose: 1 tab Hydralazine HCl (Apresoline) 10 mg SLOW IVP Q4H PRN PRN Reason: BP > 220/110 Last Admin: 09/12/18 15:07 Dose: 10 mg Hydralazine HCl (Apresoline) 75 mg PO BID [facility] Last Admin: 09/14/18 08:30 Dose: 75 mg Isosorbide Mononitrate (Imdur Er) 30 mg PO DAILY [facility] Last Admin: 09/14/18 08:30 Dose: 30 mg Lidocaine (Lidoderm 5% Patch) 1 patch TD 1630 [facility] Stop: 09/15/18 04:30 Lorazepam (Ativan) 0.5 mg PO HS [facility] Last Admin: 09/13/18 21:19 Dose: 0.5 mg Miscellaneous Medication (Lidocaine Patch Removal) 1 each TOP 0430 [facility] Last Admin: 09/14/18 05:36 Dose: 1 each Miscellaneous Medication (Lidocaine Patch Removal) 1 each TOP 0430 [facility] Montelukast Sodium (Singulair) 10 mg PO QPM [facility] Last Admin: 09/13/18 21:19 Dose: 10 mg Nicotine (Nicoderm Patch) 14 mg TOP Q24HR [facility] Last Admin: 09/13/18 17:29 Dose: 14 mg Ondansetron HCl (Zofran Odt) 4 mg PO Q6H PRN PRN Reason: Nausea/Vomiting Ondansetron HCl (Zofran) 4 mg IVP Q6H PRN PRN Reason: Nausea/Vomiting Last Admin: 09/12/18 13:45 Dose: 4 mg Oxymetazoline HCl (Oxymetazoline Hcl) 1 sprays NASAL BID [facility] Last Admin: 09/14/18 08:31 Dose: 1 spray Polyethylene Glycol (Miralax) 17 gm PO DAILY [facility] Last Admin: 09/14/18 08:30 Dose: 17 gm Rivaroxaban (Xarelto) 15 mg PO 0600 [facility] Last Admin: 09/14/18 06:35 Dose: 15 mg Sodium Chloride (Flush - Normal Saline) 10 ml IVF PRN PRN PRN Reason: Saline Flush Sodium Chloride (Sodium Chloride) 1 gm PO BID [facility] Last Admin: 09/14/18 08:59 Dose: 1 gm Tizanidine HCl (Zanaflex) 1 mg PO Q8H PRN PRN Reason: Muscle Spasm
[2018-09-14 15:38] VITALS: BP 173/80; TEMP 98.3
--- NOTE | 2018-09-14 16:23 | PQF ---
CLINICAL DOCUMENTATION IMPROVEMENT CLARIFICATION FORM: ICD-10 Updated PLEASE DO AN ADDENDUM TO THE PROGRESS NOTE WITH ANY DOCUMENTATION UPDATES OR ADDITIONS AND CARRY THROUGH TO DC SUMMARY. THANK YOU. Date: 09/14/2018 ATTN: Dr. Martinez Please exercise your independent, professional judgment in responding to the clarification form. Clinical indicators are provided on the bottom of this form for your review Please check appropriate box(s): [ ] Protein Calorie Malnutrition: [ ] Mild [ ] Moderate [ ] Severe [ ] Other Malnutrition (please specify) [ ] Underweight without malnutrition [ ] Cachexia [ x ] Other diagnosis _no malnutrition [ ] Unable to determine In addition, please specify: Present on Admission (POA): [ ] Yes [ x ] No [ ] Unable to determine CLINICAL INDICATORS - SIGNS / SYMPTOMS / LABS H&P 09/11: PE: Extremities: Generalized muscle atrophy noted. Dialysis Patient Care Technician consult 09/13: She is underweight and supplements have been ordered; Nutrition dx: Malnutrition r/t unknown etiology As Evidenced by: -8.9% wt loss over past 7 months, severe muscle wasting to interosseous muscles, BMI 14.1 RISKS: H&P 09/11: 78 yo. Hx HTN, COPD, Tobacco abuse ongoing. Hx of multiple falls. Left hip fracture. Left radial head fracture. ckd 3 TREATMENT: Dialysis Patient Care Technician Assessment 09/13. Order 09/11: Supplement: Ensure Enlive TID Moderate Malnutrition (in acute illness) Energy Intake: <75% of estimated energy requirement for > 7 days Weight Loss: 1-2%/1 week; 5%/ 1 month; 7.5%/3 months Other: mild body fat loss; mild muscle mass loss; mild fluid accumulation; Severe Malnutrition (in acute illness) Energy Intake: < 50% of estimated energy requirement for > 5 days Weight Loss: >1-2%/1 week; >5%/1 month; >7.5%/3 months Other: moderate body fat loss; moderate muscle mass loss; moderate- severe fluid accumulation; measurably reduced retail attendant strength Moderate Malnutrition (in chronic illness) Energy Intake: <75% of estimated energy requirement for >1 month Weight Loss: 5%/1 month; 7.5%/3 months; 10%/6 months; 20%/1 year Other: mild body fat loss; mild muscle mass loss; mild fluid accumulation Severe Malnutrition (in chronic illness) Energy Intake: <75% of estimated energy requirement for >1 month Weight Loss: >5%/1 month; >7.5%/3 months; >10%/6 months; >20%/1 year Other: severe body fat loss; severe muscle mass loss; severe fluid accumulation; measurably reduced retail attendant strength Thank you, Jessy (This form is maintained as a part of the permanent medical record) 2014 [employer]. All Rights Reserved Jessy Ingram RN, BSN [email or web address] Office: [phone] [facility] HE[facility] SERVICESCandice
[2018-09-14] MEDS ORDERED: Lidocaine 5% Patch TD SCH (16:30)
[2018-09-14] MEDS: Nicotine 14 MG PATCH TOP SCH (17:22)
[2018-09-14] MEDS: HYDROcodone/Acetaminophen 5/325 mg Tablet PO PRN (17:27)
[2018-09-15] MEDS ORDERED: Lidocaine Patch Removal 1 EACH TOP SCH (04:30)
--- NOTE | 2018-09-15 12:50 | DIS ---
DATE OF ADMISSION: 09/11/2018 DATE OF DISCHARGE: 09/14/2018 DISCHARGE DISPOSITION: [facility] in [place], closer to her children. 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 PROCEDURES DONE DURING HOSPITALIZATION: The patient had multiple imaging workups on arrival, a two view left hip x-ray done showed ill-defined lucency is present at the femoral neck. There is also slight overlying osseous irregularity of the greater trochanter. A CT pelvis done showed proximal left femoral fracture centered about the base of the femoral neck with prominent involvement of the greater trochanter, this does encompass the indwelling previously placed left hip hardware. C- spine CT scan showed no acute fractures. MRI brain showed small acute lacunar infarct in the peripheral right thalamic area, cortical atrophy and mild to moderate chronic ischemic white matter change was seen. Carotid Doppler showed extensive bilateral visual plaque with evidence for carotid artery vascular disease. No hemodynamically significant stenosis was seen. CT [place] and neck showed scattered calcified plaques within the carotid and vertebral arteries, evidence for arterial vascular disease, less than 50% stenosis of proximal right ICA using NASCET criteria. Echo with 2D Doppler showed ejection fraction of 55% to 60%. There was diastolic dysfunction. No thrombus was noted in the cardiac chambers. H and H 10 and 32, platelet count 175. Total cholesterol 146, triglycerides 72, LDL 70, HDL 62, vitamin B12 of 230, folic acid 7.60, TSH 2.12. BUN 16, creatinine 0.9. Troponin x3 negative. Albumin is 3.8. INPATIENT CONSULTS: 1. Preston Pisano MD for Cardiology. 2. Leora Hall MD for Neurology. 3. Khurram Rodgers MD for Orthopedic Surgery. DISCHARGE MEDICATIONS: 1. Atenolol 50 mg p.o. daily. 2. Digoxin 0.125 mg p.o. daily. 3. Imdur extended release 30 mg p.o. daily. 4. Lorazepam 0.5 mg p.o. at bedtime. 5. Tizanidine 1 mg p.o. q.8 hourly p.r.n. 6. Aspirin 81 mg p.o. daily. 7. Lipitor 40 mg p.o. at bedtime. 8. Ferrous sulfate 325 mg p.o. twice daily. 9. Hydralazine 75 mg p.o. twice daily. 10. 5% Lidoderm transdermal patch daily. 11. Prinzide 20/12.5 mg p.o. daily. 12. Nicoderm 14 mg transdermal patch daily for another 10 days. 13. Xarelto 15 mg p.o. daily. 14. Albuterol inhaler q.6 hourly p.r.n. ALLERGIES: ALLERGIC TO MORPHINE AND BARBITURATES. DISCHARGE PLAN: The patient to follow up with primary care physician in 1 week. BRIEF COURSE DURING HOSPITALIZATION: The patient initially was brought to emergency room after she had a fall and complained of left hip pain. Multiple imaging studies were obtained. The patient has had prior history of left femoral fracture and had ORIF with screw in February of 2018 and had been to rehab then. She sustained a fracture again at the left femoral neck this time. The patient had mild left hemiparesis being the dominant side for her. She also was noted to have nonunion of old left radial neck fracture. She was evaluated by Dr. Rodgers for Orthopedic Surgery and was for medical management. The patient's MRI revealed lacunar infarct in the right thalamus. The patient was severely deconditioned on arrival. She was closely monitored on the stroke unit. She has had physical therapy, occupational therapy and speech therapy consultations. In view of her deconditioning, she is being discharged to [facility] in [facility], closer to her children. She has remained neurologically stable and hemodynamically stable prior to discharge. The patient has had history of paroxysmal atrial fibrillation and was in sinus rhythm. In view of current stroke, she was placed on Xarelto. The patient had mild uncontrolled hypertension on arrival and was optimized on medications as well. A total of 35 minutes was spent on discharge plan. Please see a [id number] documentation for the day of discharge on [employer]. Please note, the patient needs to follow up with Dr. Rodgers, her orthopedic surgeon, as advised, likely in 2 to 4 weeks. Job ID: [id number] [facility]
== END 2018-09-14 17:41 | DRG 64 ==
LOC: ERS 04:44 → 2SE 08:01
PROVIDERS: ADMIT Family Medicine; ATTEND Family Medicine
DX: I63.81 Other cerebral infarction due to occlusion or stenosis of small artery (principal); S72.002A Fracture of unspecified part of neck of left femur, initial encounter for closed fracture; M81.0 Age-related osteoporosis without current pathological fracture; Z66 Do not resuscitate; S52.122A Displaced fracture of head of left radius, initial encounter for closed fracture; E87.6 Hypokalemia; N18.3 Chronic kidney disease, stage 3 (moderate); R29.6 Repeated falls; I48.91 Unspecified atrial fibrillation; D64.9 Anemia, unspecified; E78.5 Hyperlipidemia, unspecified; K43.9 Ventral hernia without obstruction or gangrene; J43.9 Emphysema, unspecified; I12.9 Hypertensive chronic kidney disease with stage 1 through stage 4 chronic kidney disease, or unspecified chronic kidney disease; G31.84 Mild cognitive impairment of uncertain or unknown etiology; F17.210 Nicotine dependence, cigarettes, uncomplicated; Z90.89 Acquired absence of other organs; Z98.890 Other specified postprocedural states; Z88.8 Allergy status to other drugs, medicaments and biological substances; Z71.6 Tobacco abuse counseling; W19.XXXA Unspecified fall, initial encounter
CPT/HCPCS: 36415; 51702; 70450; 70496; 70498; 70551; 71045; 72126; 72192; 80048; 80053; 80061; 81003; 81015; 82607; 82746; 83605; 83735; 84443; 84484; 85007; 85025; 85027; 93005; 93306; 93880; 94640; 96374; 96375; J0360; J2060; J2405; J2550; J3010; J3480; J7620; Q9966